=== PATIENT | female | born 1950 | race Caucasian/White ===

== ENCOUNTER 2018-07-21 15:57 | Outpatient (CLI) | payer MEDICARE | END 2018-07-21 15:58 | disposition home or self-care (01) | LOC: BICMAMMO 15:57 | PROVIDERS: ATTEND Family Medicine | DX: Z12.31 Encounter for screening mammogram for malignant neoplasm of breast (principal) | CPT/HCPCS: 77063; 77067 ==

== ENCOUNTER 2019-12-16 09:28 | Outpatient (CLI) | payer MEDICARE ==
--- NOTE | 2019-12-16 10:14 | ULT ---
BILATERAL CAROTID DUPLEX ULTRASOUND: HISTORY: Carotid stenosis. Right-sided endarterectomy 5 years ago TECHNIQUE: Grayscale, color-flow and spectral Doppler ultrasound imaging of the extracranial carotid artery syst ems was performed bilaterally. FINDINGS: There is plaque formation on the left The peak systolic velocity in the right ICA measures 73 cm/s with an end-diastolic velocity of 23 cm/ s and a systolic ratio of 0.87. The peak systolic velocity in the left ICA measures 84 cm/s with an end-diastolic velocity of 35 cm/s and a systolic ratio of 0.89. Flow in both vertebral arteries remains antegrade. IMPRESSION: No evidence of hemodynamically significant stenosis in either ICA
--- NOTE | 2019-12-16 10:16 | ULT ---
GALLBLADDER ULTRASOUND: HISTORY:Elevated transaminases, alcohol abuse FINDINGS: The liver demonstrates increased echotexture without focal mass or intrahepatic biliary ductal dilata tion. No gallstones, gallbladder wall thickening or pericholecystic fluid are seen. The right kidney and visualized portions of the pancreas are normal. The common duct [id number] in diameter. No free fluid is seen in the Biswas's pouch. IMPRESSION: Fatty liver
== END 2019-12-16 09:29 | disposition home or self-care (01) ==
LOC: BICULT 09:28
PROVIDERS: ATTEND Family Medicine
DX: I73.9 Peripheral vascular disease, unspecified (principal); R74.0 Nonspecific elevation of levels of transaminase and lactic acid dehydrogenase [LDH]; F10.10 Alcohol abuse, uncomplicated; K76.0 Fatty (change of) liver, not elsewhere classified
CPT/HCPCS: 76705; 93880

== ENCOUNTER 2022-03-26 20:12 | Inpatient (IN) | payer MEDICARE ==
[2022-03-26 22:40] VITALS: BMI 33.7
[2022-03-26] MEDS ORDERED: hydrALAZINE 20 MG/ML VIAL SLOW IVP PRN (23:27)
[2022-03-26] MEDS ORDERED: Dextrose 50% Abboject 50 ML SYRINGE SLOW IVP PRN (23:39)
[2022-03-26] MEDS ORDERED: Dextrose 5% in Water 1,000 ML IV PRN (23:39)
[2022-03-26] MEDS ORDERED: Electrolyte Replacement Protocol 1 EACH FS SCH (23:45)
[2022-03-26] MEDS ORDERED: Ondansetron ODT 4 MG TAB PO PRN (23:57)
[2022-03-26] MEDS ORDERED: Acetaminophen 650 MG Suppository PR PRN (23:57)
[2022-03-26] MEDS ORDERED: Acetaminophen 325 MG TAB PO PRN (23:57)
[2022-03-26] MEDS ORDERED: Ondansetron PF 4 MG/2 ML Vial IVP PRN (23:57)
[2022-03-27 00:14] LABS: #Eosinphils 0.2 thou/uL (0.0-0.7); #Lymphocytes 0.8 thou/uL (1.20-3.40); #Monocytes 0.6 thou/uL (0.11-0.59); #Neutrophils 6.1 thou/uL (1.40-6.50); %Basophils 0.1 % (0.0-1.0); %Eosinophils 2.6 % (0.0-10.0); %Lymphocytes 10.5 % (21.0-51.0); %Monocytes 7.5 % (0.0-10.0); %Neutrophils 79.4 % (42.0-75.0); Hemoglobin 7.4 g/dL (12.0-16.0); Mean Corpuscular HGB CONC 32.8 g/dL (32.0-36.0); Mean Corpuscular Hemoglobin 28.5 pg (27.0-31.0); Mean Platelet Volume 6.4 fL (7.4-10.4); Platelet Count 247 thou/uL (130-400); RBC Distribution Width 14.2 % (11.5-14.5); Red Blood Cell (RBC) Count 2.59 mill/uL (4.20-5.40); White Blood Cell (WBC) Count 7.7 thou/uL (4.8-10.8)
[2022-03-27] MEDS ORDERED: Furosemide 40 MG/4 ML VIAL SLOW IVP SCH (00:15)
[2022-03-27 00:36] LABS: ALT (SGPT) 14 U/L (8-55); AST (SGOT) 22 U/L (5-34); Albumin 3.1 g/dL (3.4-4.8); Alkaline Phosphatase 96 U/L (40-110); Anion Gap 16 mmol/L (10-20); BUN (Urea Nitrogen) 53 mg/dL (9.8-20.1); Bilirubin, Total 0.3 mg/dL (0.2-1.2); Calc. Creatinine Clearance 17 mL/min (70-130); Calcium 8.6 mg/dL (7.8-10.44); Carbon Dioxide 18 mmol/L (23-31); Chloride 110 mmol/L (98-107); Globulin 3.3 g/dL (2.4-3.5); Glucose 137 mg/dL (83-110); Potassium 4.3 mmol/L (3.5-5.1); Protein, Total 6.4 g/dL (5.8-8.1); Sodium 140 mmol/L (136-145)
[2022-03-27 00:41] LABS: Iron 50 ug/dL (50-170); Iron Binding Capacity, Total 331 mcg/dL (265-497)
[2022-03-27] MEDS ORDERED: hydrALAZINE 20 MG/ML VIAL SLOW IVP PRN (01:57)
[2022-03-27] MEDS ORDERED: Amlodipine 10 MG TAB PO SCH (02:15)
[2022-03-27] MEDS ORDERED: Magnesium 2 GM/50 ML(in water) 2 GM in Premix Bag 1 BAG IVPB SCH (05:30)
[2022-03-27 06:00] LABS: Ferritin 38.34 ng/mL (10-291)
[2022-03-27] MEDS ORDERED: Cyanocobalamin 1000 MCG/ML VIAL IM SCH (07:45)
[2022-03-27] MEDS ORDERED: Heparin 5,000 UNITS/ML VIAL SC SCH (09:00)
[2022-03-27 09:26] LABS: #Eosinphils 0.1 thou/uL (0.0-0.7); #Lymphocytes 0.8 thou/uL (1.20-3.40); #Monocytes 0.6 thou/uL (0.11-0.59); #Neutrophils 5.6 thou/uL (1.40-6.50); %Basophils 0.4 % (0.0-1.0); %Eosinophils 1.9 % (0.0-10.0); %Lymphocytes 11.4 % (21.0-51.0); %Monocytes 8.6 % (0.0-10.0); %Neutrophils 77.8 % (42.0-75.0); Hemoglobin 7.1 g/dL (12.0-16.0); Mean Corpuscular Hemoglobin 28.8 pg (27.0-31.0); Mean Corpuscular Volume 87.1 fL (78.0-98.0); Mean Platelet Volume 6.8 fL (7.4-10.4); Platelet Count 248 thou/uL (130-400); RBC Distribution Width 14.4 % (11.5-14.5); Red Blood Cell (RBC) Count 2.46 mill/uL (4.20-5.40); White Blood Cell (WBC) Count 7.2 thou/uL (4.8-10.8)
[2022-03-27 09:27] LABS: Reticulocyte Count 2.4 % (0.5-1.5)
[2022-03-27 09:43] LABS: ALT (SGPT) 13 U/L (8-55); AST (SGOT) 20 U/L (5-34); Albumin 3.1 g/dL (3.4-4.8); Alkaline Phosphatase 97 U/L (40-110); Anion Gap 17 mmol/L (10-20); BUN (Urea Nitrogen) 50 mg/dL (9.8-20.1); Bilirubin, Total 0.3 mg/dL (0.2-1.2); Calc. Creatinine Clearance 16 mL/min (70-130); Calcium 8.6 mg/dL (7.8-10.44); Carbon Dioxide 17 mmol/L (23-31); Chloride 109 mmol/L (98-107); Globulin 3.4 g/dL (2.4-3.5); Glucose 170 mg/dL (83-110); Potassium 4.3 mmol/L (3.5-5.1); Protein, Total 6.5 g/dL (5.8-8.1); Sodium 139 mmol/L (136-145)
[2022-03-27] MEDS: Furosemide 40 MG/4 ML VIAL SLOW IVP SCH (11:00)
[2022-03-27] MEDS: Nitroglycerin 2% Ointment 1 INCH/1 GM Packet TOP SCH ×2 (11:08→17:04)
[2022-03-27] MEDS: hydrALAZINE 20 MG/ML VIAL SLOW IVP PRN ×3 (11:12→20:39)
[2022-03-27 12:20] LABS: SARS-CoV-2 PCR by NAA Not Detected (NotDetected)
[2022-03-27 12:25] LABS: Creatinine, Urine 29.45 mg/dL (47-110)
[2022-03-27] MEDS: HumaLOG 300 UNITS/3 ML VIAL SC PRN ×2 (13:08→22:05)
[2022-03-27] MEDS: Mometasone 200 MCG/Formoterol 5 MCG 120 PUFF INHALER INH SCH (19:05)
[2022-03-27] MEDS: Cyanocobalamin (Vitamin B-12) 1,000 MCG TAB PO SCH (20:39)
[2022-03-28] MEDS: Nitroglycerin 2% Ointment 1 INCH/1 GM Packet TOP SCH ×2 (00:34→09:16)
[2022-03-28] MEDS: hydrALAZINE 20 MG/ML VIAL SLOW IVP PRN ×4 (00:34→23:59)
[2022-03-28 04:12] LABS: #Eosinphils 0.1 thou/uL (0.0-0.7); #Lymphocytes 0.8 thou/uL (1.20-3.40); #Monocytes 0.6 thou/uL (0.11-0.59); #Neutrophils 5.8 thou/uL (1.40-6.50); %Basophils 0.2 % (0.0-1.0); %Eosinophils 0.8 % (0.0-10.0); %Lymphocytes 11.4 % (21.0-51.0); %Monocytes 8.2 % (0.0-10.0); %Neutrophils 79.4 % (42.0-75.0); Hemoglobin 7.8 g/dL (12.0-16.0); Mean Corpuscular HGB CONC 32.9 g/dL (32.0-36.0); Mean Corpuscular Hemoglobin 28.7 pg (27.0-31.0); Mean Corpuscular Volume 87.3 fL (78.0-98.0); Mean Platelet Volume 6.6 fL (7.4-10.4); Platelet Count 216 thou/uL (130-400); RBC Distribution Width 13.8 % (11.5-14.5); Red Blood Cell (RBC) Count 2.72 mill/uL (4.20-5.40); White Blood Cell (WBC) Count 7.3 thou/uL (4.8-10.8)
[2022-03-28 04:39] LABS: ALT (SGPT) 9 U/L (8-55); AST (SGOT) 15 U/L (5-34); Albumin 2.9 g/dL (3.4-4.8); Alkaline Phosphatase 87 U/L (40-110); Anion Gap 15 mmol/L (10-20); BUN (Urea Nitrogen) 49 mg/dL (9.8-20.1); Bilirubin, Total 0.3 mg/dL (0.2-1.2); Calc. Creatinine Clearance 16 mL/min (70-130); Calcium 8.3 mg/dL (7.8-10.44); Carbon Dioxide 18 mmol/L (23-31); Chloride 110 mmol/L (98-107); Globulin 3.2 g/dL (2.4-3.5); Glucose 162 mg/dL (83-110); Potassium 4.3 mmol/L (3.5-5.1); Protein, Total 6.1 g/dL (5.8-8.1); Sodium 139 mmol/L (136-145)
[2022-03-28] MEDS: HumaLOG 300 UNITS/3 ML VIAL SC PRN ×3 (06:09→21:05)
[2022-03-28] MEDS: Mometasone 200 MCG/Formoterol 5 MCG 120 PUFF INHALER INH SCH ×2 (06:50→19:01)
[2022-03-28] MEDS ORDERED: Melatonin 3 MG TAB PO PRN (08:22)
[2022-03-28] MEDS ORDERED: Amlodipine 10 MG TAB PO SCH (09:00)
[2022-03-28] MEDS ORDERED: Ergocalciferol 1.25 MG(50,000 UNITS) CAP PO SCH (09:00)
[2022-03-28] MEDS: NIFEdipine XL 60 MG TAB PO SCH (09:11)
[2022-03-28] MEDS: hydrALAZINE 25 MG TAB PO SCH ×2 (09:12→20:23)
[2022-03-28] MEDS: Aspirin 81 mg Enteric Coated Tablet PO SCH (09:12)
[2022-03-28] MEDS: Loratadine 10 MG TAB PO SCH (09:13)
[2022-03-28] MEDS: Gabapentin 100 MG CAP PO SCH (09:13)
[2022-03-28] MEDS: Furosemide 40 MG/4 ML VIAL SLOW IVP SCH (09:14)
[2022-03-28] MEDS ORDERED: EPOETIN ALFA-EPBX (ESRD) 10,000 UNIT/ML VIAL SC SCH (13:00)
[2022-03-28] MEDS ORDERED: Polyethylene Glycol 3350 17 GM Packet PO PRN (16:27)
[2022-03-28] MEDS: Cyanocobalamin (Vitamin B-12) 1,000 MCG TAB PO SCH (20:24)
[2022-03-28] MEDS: Senokot S 8.6-50 MG TAB PO SCH (20:24)
[2022-03-28] MEDS ORDERED: NPH, Human Insulin Isophane 300 UNIT/3 ML VIAL SC SCH (21:00)
[2022-03-29 04:38] LABS: #Eosinphils 0.2 thou/uL (0.0-0.7); #Lymphocytes 0.8 thou/uL (1.20-3.40); #Monocytes 0.7 thou/uL (0.11-0.59); #Neutrophils 7.5 thou/uL (1.40-6.50); %Eosinophils 1.7 % (0.0-10.0); %Lymphocytes 8.4 % (21.0-51.0); %Monocytes 7.6 % (0.0-10.0); %Neutrophils 82.3 % (42.0-75.0); Hemoglobin 7.9 g/dL (12.0-16.0); Mean Corpuscular HGB CONC 32.6 g/dL (32.0-36.0); Mean Corpuscular Hemoglobin 28.9 pg (27.0-31.0); Mean Corpuscular Volume 88.5 fL (78.0-98.0); Mean Platelet Volume 6.8 fL (7.4-10.4); Platelet Count 221 thou/uL (130-400); RBC Distribution Width 13.7 % (11.5-14.5); Red Blood Cell (RBC) Count 2.74 mill/uL (4.20-5.40); White Blood Cell (WBC) Count 9.1 thou/uL (4.8-10.8)
[2022-03-29 04:57] LABS: Anion Gap 15 mmol/L (10-20); BUN (Urea Nitrogen) 52 mg/dL (9.8-20.1); BUN/Creatinine Ratio 12.01; Calc. Creatinine Clearance 15 mL/min (70-130); Calcium 8.3 mg/dL (7.8-10.44); Carbon Dioxide 18 mmol/L (23-31); Chloride 110 mmol/L (98-107); Glucose 185 mg/dL (83-110); Phosphorus 4.9 mg/dL (2.3-4.7); Potassium 4.1 mmol/L (3.5-5.1); Sodium 139 mmol/L (136-145)
[2022-03-29] MEDS: HumaLOG 300 UNITS/3 ML VIAL SC PRN ×3 (06:34→16:39)
[2022-03-29] MEDS: Levothyroxine Sodium 88 MCG TAB PO SCH (06:34)
[2022-03-29] MEDS: Mometasone 200 MCG/Formoterol 5 MCG 120 PUFF INHALER INH SCH ×2 (07:04→19:08)
[2022-03-29] MEDS: hydrALAZINE 20 MG/ML VIAL SLOW IVP PRN ×2 (07:25→16:39)
[2022-03-29] MEDS ORDERED: Labetalol HCl 100 MG/20 ML VIAL SLOW IVP PRN (08:20)
[2022-03-29] MEDS: hydrALAZINE 25 MG TAB PO SCH ×2 (09:00→20:22)
[2022-03-29] MEDS: Senokot S 8.6-50 MG TAB PO SCH ×2 (09:00→20:23)
[2022-03-29] MEDS: Aspirin 81 mg Enteric Coated Tablet PO SCH (09:00)
[2022-03-29] MEDS: Metoprolol Tartrate 25 MG TAB PO SCH ×2 (09:00→20:22)
[2022-03-29] MEDS: Furosemide 40 MG/4 ML VIAL SLOW IVP SCH (09:01)
[2022-03-29] MEDS: NIFEdipine XL 60 MG TAB PO SCH (09:01)
[2022-03-29] MEDS: NPH, Human Insulin Isophane 300 UNIT/3 ML VIAL SC SCH (09:01)
[2022-03-29] MEDS: Gabapentin 100 MG CAP PO SCH (09:01)
[2022-03-29 17:33] LABS: ANA Symphony (Qualitative) Negative (Negative); ANA Symphony (Quantitative) 0.3 Ratio (< 0.7 Negative); dsDNA IgG Antibody 5.2 IU/mL (<10 Negative)
[2022-03-29] MEDS: Cyanocobalamin (Vitamin B-12) 1,000 MCG TAB PO SCH (20:22)
[2022-03-30] MEDS: Levothyroxine Sodium 88 MCG TAB PO SCH (05:31)
[2022-03-30] MEDS: Mometasone 200 MCG/Formoterol 5 MCG 120 PUFF INHALER INH SCH ×2 (07:09→18:57)
[2022-03-30] MEDS: Loratadine 10 MG TAB PO SCH (09:59)
[2022-03-30] MEDS: hydrALAZINE 25 MG TAB PO SCH ×2 (09:59→20:57)
[2022-03-30] MEDS: NIFEdipine XL 60 MG TAB PO SCH ×2 (09:59→20:57)
[2022-03-30] MEDS: Aspirin 81 mg Enteric Coated Tablet PO SCH (10:00)
[2022-03-30] MEDS: Gabapentin 100 MG CAP PO SCH (10:00)
[2022-03-30] MEDS: Metoprolol Tartrate 25 MG TAB PO SCH ×2 (10:00→20:58)
[2022-03-30] MEDS: Senokot S 8.6-50 MG TAB PO SCH ×2 (10:01→20:58)
[2022-03-30] MEDS: NPH, Human Insulin Isophane 300 UNIT/3 ML VIAL SC SCH (10:02)
[2022-03-30] MEDS: HumaLOG 300 UNITS/3 ML VIAL SC PRN (17:19)
[2022-03-30] MEDS: Cyanocobalamin (Vitamin B-12) 1,000 MCG TAB PO SCH (20:58)
[2022-03-30] MEDS: Furosemide 40 MG/4 ML VIAL SLOW IVP SCH (21:02)
[2022-03-31 05:14] LABS: Anion Gap 13 mmol/L (10-20); BUN (Urea Nitrogen) 56 mg/dL (9.8-20.1); Calc. Creatinine Clearance 14 mL/min (70-130); Calcium 8.1 mg/dL (7.8-10.44); Carbon Dioxide 19 mmol/L (23-31); Chloride 110 mmol/L (98-107); Glucose 154 mg/dL (83-110); Magnesium 2.1 mg/dL (1.6-2.6); Potassium 4.2 mmol/L (3.5-5.1); Sodium 138 mmol/L (136-145)
[2022-03-31] MEDS: Levothyroxine Sodium 88 MCG TAB PO SCH (05:34)
[2022-03-31] MEDS: Mometasone 200 MCG/Formoterol 5 MCG 120 PUFF INHALER INH SCH ×2 (07:19→19:02)
[2022-03-31] MEDS: NIFEdipine XL 60 MG TAB PO SCH ×2 (09:13→19:52)
[2022-03-31] MEDS: hydrALAZINE 25 MG TAB PO SCH ×2 (09:13→19:51)
[2022-03-31] MEDS: Metoprolol Tartrate 25 MG TAB PO SCH ×2 (09:13→19:52)
[2022-03-31] MEDS: Gabapentin 100 MG CAP PO SCH (09:13)
[2022-03-31] MEDS: Aspirin 81 mg Enteric Coated Tablet PO SCH (09:14)
[2022-03-31] MEDS: Senokot S 8.6-50 MG TAB PO SCH ×2 (09:15→19:52)
[2022-03-31] MEDS: NPH, Human Insulin Isophane 300 UNIT/3 ML VIAL SC SCH (12:16)
[2022-03-31] MEDS: HumaLOG 300 UNITS/3 ML VIAL SC PRN (17:31)
[2022-03-31] MEDS: Cyanocobalamin (Vitamin B-12) 1,000 MCG TAB PO SCH (19:52)
[2022-03-31 19:55] VITALS: BP 174/79; TEMP 97.6
== END 2022-03-31 21:37 | disposition home health service (06) | DRG 291 ==
LOC: 2NO 22:34
PROVIDERS: ADMIT Internal Medicine; ATTEND Internal Medicine
PROC: 5A09357 Assistance with Respiratory Ventilation, Less than 24 Consecutive Hours, Continuous Positive Airway Pressure (ICD-10-PCS; principal; 2022-03-27)
DX: I13.2 Hypertensive heart and chronic kidney disease with heart failure and with stage 5 chronic kidney disease, or end stage renal disease (principal); Z20.822 Contact with and (suspected) exposure to COVID-19; Z66 Do not resuscitate; Z51.5 Encounter for palliative care; I50.33 Acute on chronic diastolic (congestive) heart failure; J96.21 Acute and chronic respiratory failure with hypoxia; N17.9 Acute kidney failure, unspecified; N18.5 Chronic kidney disease, stage 5; I16.1 Hypertensive emergency; J44.1 Chronic obstructive pulmonary disease with (acute) exacerbation; E87.2 Acidosis; I47.2 Ventricular tachycardia; E11.22 Type 2 diabetes mellitus with diabetic chronic kidney disease; E03.9 Hypothyroidism, unspecified; D63.1 Anemia in chronic kidney disease; K21.9 Gastro-esophageal reflux disease without esophagitis; E66.9 Obesity, unspecified; G47.33 Obstructive sleep apnea (adult) (pediatric); E88.09 Other disorders of plasma-protein metabolism, not elsewhere classified; I08.3 Combined rheumatic disorders of mitral, aortic and tricuspid valves; K52.9 Noninfective gastroenteritis and colitis, unspecified; E53.8 Deficiency of other specified B group vitamins; Z53.29 Procedure and treatment not carried out because of patient's decision for other reasons; Z90.49 Acquired absence of other specified parts of digestive tract; Z68.32 Body mass index [BMI] 32.0-32.9, adult; Z86.73 Personal history of transient ischemic attack (TIA), and cerebral infarction without residual deficits; Z90.710 Acquired absence of both cervix and uterus; Z79.899 Other long term (current) drug therapy; Z79.82 Long term (current) use of aspirin; Z79.84 Long term (current) use of oral hypoglycemic drugs; Z79.4 Long term (current) use of insulin; Z79.890 Hormone replacement therapy
CPT/HCPCS: 36415; 36416; 36430; 76770; 80048; 80053; 80069; 82306; 82570; 82607; 82728; 82746; 83516; 83540; 83550; 83735; 83970; 84156; 84484; 85025; 85046; 86038; 86225; 86340; 86850; 86900; 86901; 93306; 93798; 94640; J0360; J1815; J1940; J3420; J7620; P9016; Q5105; U0003; U0005

== ENCOUNTER 2022-04-02 04:58 | Inpatient (IN) | payer MEDICARE ==
[2022-04-02] MEDS ORDERED: Nitroglycerin 2% Ointment 1 INCH/1 GM Packet ONE (05:40)
[2022-04-02] MEDS ORDERED: Furosemide 40 MG/4 ML VIAL ONE (05:40)
[2022-04-02 06:03] LABS: #Eosinphils 0.1 thou/uL (0.0-0.7); #Lymphocytes 0.6 thou/uL (1.20-3.40); #Monocytes 0.4 thou/uL (0.11-0.59); #Neutrophils 8.7 thou/uL (1.40-6.50); %Basophils 0.4 % (0.0-1.0); %Eosinophils 0.8 % (0.0-10.0); %Lymphocytes 5.9 % (21.0-51.0); %Monocytes 3.7 % (0.0-10.0); %Neutrophils 89.3 % (42.0-75.0); Hemoglobin 7.7 g/dL (12.0-16.0); Mean Corpuscular HGB CONC 32.4 g/dL (32.0-36.0); Mean Corpuscular Hemoglobin 28.8 pg (27.0-31.0); Mean Corpuscular Volume 88.7 fL (78.0-98.0); Mean Platelet Volume 7.3 fL (7.4-10.4); Platelet Count 241 thou/uL (130-400); RBC Distribution Width 14.5 % (11.5-14.5); Red Blood Cell (RBC) Count 2.68 mill/uL (4.20-5.40); White Blood Cell (WBC) Count 9.8 thou/uL (4.8-10.8)
[2022-04-02 06:23] LABS: ALT (SGPT) 15 U/L (8-55); AST (SGOT) 22 U/L (5-34); Albumin 3.1 g/dL (3.4-4.8); Alkaline Phosphatase 97 U/L (40-110); Anion Gap 14 mmol/L (10-20); BUN (Urea Nitrogen) 63 mg/dL (9.8-20.1); Bilirubin, Total 0.3 mg/dL (0.2-1.2); Calc. Creatinine Clearance 0 mL/min (70-130); Calcium 8.1 mg/dL (7.8-10.44); Carbon Dioxide 18 mmol/L (23-31); Chloride 106 mmol/L (98-107); Globulin 3.4 g/dL (2.4-3.5); Glucose 204 mg/dL (83-110); Lipase 42 U/L (8-78); Potassium 4.5 mmol/L (3.5-5.1); Protein, Total 6.5 g/dL (5.8-8.1); Sodium 133 mmol/L (136-145)
[2022-04-02 06:45] LABS: CKMB 3.5 ng/mL (0-6.6)
[2022-04-02] MEDS ORDERED: Heparin 10,000 UNITS/ 10 ML VIAL ONE ×2 (08:41→12:13)
[2022-04-02 09:32] LABS: Troponin I 0.223 ng/mL (< 0.028)
[2022-04-02] MEDS ORDERED: ceFAZolin (BATCH) 2 GM in Premix Bag 1 BAG IVPB SCH (11:00)
[2022-04-02] MEDS ORDERED: Ondansetron PF 4 MG/2 ML Vial IVP PRN (11:11)
[2022-04-02] MEDS ORDERED: Dextrose 5% in Water 1,000 ML IV PRN (11:25)
[2022-04-02] MEDS ORDERED: Dextrose 50% Abboject 50 ML SYRINGE SLOW IVP PRN (11:25)
[2022-04-02] MEDS ORDERED: Lidocaine 1% w/Epinephrine 1:100K 20 ML VIAL ONE (12:13)
[2022-04-02] MEDS ORDERED: Bupivacaine PF 0.5% 30 ML VIAL ONE (12:13)
[2022-04-02] MEDS ORDERED: PROPOFOL 0 ML ONE (12:16)
[2022-04-02] MEDS ORDERED: Midazolam HCl 2 mg/2 ml Vial ONE (12:16)
[2022-04-02] MEDS ORDERED: fentaNYL Citrate/PF 100 MCG/2 ML SYRINGE ONE (12:16)
[2022-04-02] MEDS ORDERED: Ketamine 50 MG/ML (10ML VIAL) ONE (12:19)
[2022-04-02] MEDS ORDERED: ceFAZolin (BATCH) 2 GM/100 ML BAG ONE (12:21)
[2022-04-02 12:23] LABS: Troponin I 0.226 ng/mL (< 0.028)
[2022-04-02] MEDS ORDERED: Esmolol 100 MG/10 ML VIAL ONE ×2 (12:55→13:41)
[2022-04-02] MEDS ORDERED: Promethazine HCl 25 MG/ML VIAL IM PRN (13:21)
[2022-04-02] MEDS ORDERED: Ondansetron HCl/PF 4 MG/2 ML Vial IVP PRN (13:21)
[2022-04-02] MEDS ORDERED: Promethazine HCl 25 MG/ML VIAL IVPB PRN (13:21)
[2022-04-02] MEDS ORDERED: Labetalol HCl 100 MG/20 ML VIAL ONE (13:32)
[2022-04-02] MEDS ORDERED: Melatonin 3 MG TAB PO PRN (19:22)
[2022-04-02 19:26] LABS: ALT (SGPT) 12 U/L (8-55); AST (SGOT) 23 U/L (5-34); Albumin 2.8 g/dL (3.4-4.8); Alkaline Phosphatase 84 U/L (40-110); Anion Gap 15 mmol/L (10-20); BUN (Urea Nitrogen) 39 mg/dL (9.8-20.1); Bilirubin, Total 0.3 mg/dL (0.2-1.2); Calc. Creatinine Clearance 23 mL/min (70-130); Calcium 7.4 mg/dL (7.8-10.44); Carbon Dioxide 23 mmol/L (23-31); Chloride 105 mmol/L (98-107); Globulin 3.2 g/dL (2.4-3.5); Glucose 142 mg/dL (83-110); Sodium 139 mmol/L (136-145)
[2022-04-02] MEDS ORDERED: hydrALAZINE 20 MG/ML VIAL SLOW IVP PRN (21:17)
[2022-04-02] MEDS ORDERED: Labetalol HCl 100 MG/20 ML VIAL SLOW IVP PRN (21:18)
[2022-04-02] MEDS: Heparin 5,000 UNITS/ML VIAL SC SCH (21:34)
[2022-04-02] MEDS: Metoprolol Tartrate 50 MG TAB PO SCH (21:35)
[2022-04-02] MEDS: Melatonin 3 MG TAB PO PRN (21:38)
[2022-04-02] MEDS ORDERED: traMADol HCl 50 MG TAB PO SCH (21:45)
[2022-04-02 23:32] LABS: HBSAB Concentration Less than 8.00 mIU/mL; HBSAg Index 0.34 S/CO (0-0.99); Hep B Surf AB Non-Reactive (NonReactive); Hep B Surf Ag Non-Reactive S/CO (NonReactive)
[2022-04-02 23:42] LABS: Bacteria/HPF None Seen HPF (None Seen); Bilirubin Negative (Negative); Blood, Urine 1+ (Negative); Clarity Clear (Clear); Glucose, Urine (Dipstick) 200 mg/dL (Negative); Ketone, Urine 10 mg/dL (Negative); Leukocyte Negative Leu/uL (Negative); Nitrite Negative (Negative); Protein, Urine (Dipstick) 600 mg/dL (Neg-Trace); Renal Epithelial 0-3 HPF (None Seen); Squamous Epithelial None Seen HPF (0-3); Urobilinogen Normal mg/dL (Less than 2); pH, Urine 6.5 (5.0-9.0)
[2022-04-03] MEDS: hydrALAZINE 20 MG/ML VIAL SLOW IVP PRN ×2 (01:17→04:30)
[2022-04-03 04:43] LABS: #Eosinphils 0.1 thou/uL (0.0-0.7); #Lymphocytes 0.7 thou/uL (1.20-3.40); #Monocytes 0.5 thou/uL (0.11-0.59); #Neutrophils 5.5 thou/uL (1.40-6.50); %Lymphocytes 9.9 % (21.0-51.0); %Monocytes 6.8 % (0.0-10.0); %Neutrophils 81.2 % (42.0-75.0); Hemoglobin 7.1 g/dL (12.0-16.0); Mean Corpuscular HGB CONC 32.1 g/dL (32.0-36.0); Mean Corpuscular Hemoglobin 28.7 pg (27.0-31.0); Mean Corpuscular Volume 89.4 fL (78.0-98.0); Platelet Count 215 thou/uL (130-400); RBC Distribution Width 14.4 % (11.5-14.5); Red Blood Cell (RBC) Count 2.48 mill/uL (4.20-5.40); White Blood Cell (WBC) Count 6.8 thou/uL (4.8-10.8)
[2022-04-03] MEDS: Levothyroxine Sodium 88 MCG TAB PO SCH (04:53)
[2022-04-03 05:03] LABS: ALT (SGPT) 10 U/L (8-55); AST (SGOT) 18 U/L (5-34); Albumin 2.7 g/dL (3.4-4.8); Alkaline Phosphatase 85 U/L (40-110); Anion Gap 15 mmol/L (10-20); BUN (Urea Nitrogen) 43 mg/dL (9.8-20.1); Bilirubin, Total 0.3 mg/dL (0.2-1.2); Calc. Creatinine Clearance 20 mL/min (70-130); Calcium 7.9 mg/dL (7.8-10.44); Carbon Dioxide 23 mmol/L (23-31); Chloride 106 mmol/L (98-107); Glucose 127 mg/dL (83-110); Potassium 3.9 mmol/L (3.5-5.1); Protein, Total 5.7 g/dL (5.8-8.1); Sodium 140 mmol/L (136-145)
[2022-04-03] MEDS: Ezetimibe 10 MG TAB PO SCH (08:25)
[2022-04-03] MEDS: Atorvastatin Calcium 40 MG TAB PO SCH (08:25)
[2022-04-03] MEDS: Cholecalciferol 1,000 UNITS (25 MCG) TAB PO SCH (08:25)
[2022-04-03] MEDS: Aspirin 81 mg Enteric Coated Tablet PO SCH (08:25)
[2022-04-03] MEDS: Gabapentin 100 MG CAP PO SCH (08:25)
[2022-04-03] MEDS: Loratadine 10 MG TAB PO SCH (08:26)
[2022-04-03] MEDS: Furosemide 20 MG TAB PO SCH (08:26)
[2022-04-03] MEDS: Heparin 5,000 UNITS/ML VIAL SC SCH ×3 (08:26→20:52)
[2022-04-03] MEDS: Famotidine/PF 20 mg/2ml Vial SLOW IVP SCH (08:26)
[2022-04-03] MEDS: Metoprolol Tartrate 50 MG TAB PO SCH ×2 (08:27→20:53)
[2022-04-03] MEDS ORDERED: Heparin 10,000 UNITS/ 10 ML VIAL ONE (08:38)
[2022-04-03] MEDS ORDERED: Dextrose 5% in Water 1,000 ML IV PRN (11:54)
[2022-04-03] MEDS ORDERED: Dextrose 50% Abboject 50 ML SYRINGE SLOW IVP PRN (11:54)
[2022-04-03] MEDS: Labetalol HCl 100 MG/20 ML VIAL SLOW IVP PRN ×2 (12:56→17:05)
[2022-04-03] MEDS ORDERED: Tuberculin PPD 0.1 ML VIAL I-DERMAL SCH (16:30)
[2022-04-03] MEDS: HumaLOG 300 UNITS/3 ML VIAL SC PRN (17:04)
[2022-04-03] MEDS ORDERED: NIFEdipine XL 60 MG TAB PO SCH (20:00)
[2022-04-03] MEDS: hydrALAZINE 25 MG TAB PO SCH (20:52)
[2022-04-03] MEDS: NIFEdipine XL 60 MG TAB PO SCH (20:52)
[2022-04-03 22:32] LABS: Hep B Core Total Ab Non-Reactive (NonReactive); Hep B Core Total Index 0.07 S/CO (0-0.79)
[2022-04-04 04:19] LABS: Hemoglobin 7.2 g/dL (12.0-16.0)
[2022-04-04 04:43] LABS: Anion Gap 12 mmol/L (10-20); BUN (Urea Nitrogen) 29 mg/dL (9.8-20.1); Calc. Creatinine Clearance 25 mL/min (70-130); Calcium 7.7 mg/dL (7.8-10.44); Carbon Dioxide 28 mmol/L (23-31); Chloride 102 mmol/L (98-107); Glucose 171 mg/dL (83-110); Potassium 3.3 mmol/L (3.5-5.1); Sodium 139 mmol/L (136-145)
[2022-04-04] MEDS: Levothyroxine Sodium 88 MCG TAB PO SCH (06:12)
[2022-04-04] MEDS: Atorvastatin Calcium 40 MG TAB PO SCH (09:24)
[2022-04-04] MEDS: Cholecalciferol 1,000 UNITS (25 MCG) TAB PO SCH (09:25)
[2022-04-04] MEDS: Metoprolol Tartrate 50 MG TAB PO SCH ×2 (09:25→20:35)
[2022-04-04] MEDS: NIFEdipine XL 60 MG TAB PO SCH ×2 (09:25→20:35)
[2022-04-04] MEDS: Furosemide 20 MG TAB PO SCH (09:25)
[2022-04-04] MEDS: Ezetimibe 10 MG TAB PO SCH (09:25)
[2022-04-04] MEDS: Gabapentin 100 MG CAP PO SCH (09:25)
[2022-04-04] MEDS: hydrALAZINE 25 MG TAB PO SCH ×2 (09:25→20:35)
[2022-04-04] MEDS: Aspirin 81 mg Enteric Coated Tablet PO SCH (09:25)
[2022-04-04] MEDS: Heparin 5,000 UNITS/ML VIAL SC SCH ×3 (09:26→21:51)
[2022-04-04] MEDS: NPH, Human Insulin Isophane 300 UNIT/3 ML VIAL SC SCH (09:26)
[2022-04-04] MEDS: Famotidine/PF 20 mg/2ml Vial SLOW IVP SCH (09:26)
[2022-04-04] MEDS: hydrALAZINE 20 MG/ML VIAL SLOW IVP PRN ×2 (11:21→15:49)
[2022-04-04] MEDS: HumaLOG 300 UNITS/3 ML VIAL SC PRN ×2 (11:21→18:23)
[2022-04-04] MEDS ORDERED: Potassium Chloride 20 MEQ TAB PO SCH (12:15)
[2022-04-05] MEDS: hydrALAZINE 20 MG/ML VIAL SLOW IVP PRN ×3 (00:29→17:32)
[2022-04-05] MEDS: Labetalol HCl 100 MG/20 ML VIAL SLOW IVP PRN ×2 (04:34→19:14)
[2022-04-05 04:56] LABS: Hemoglobin 7.6 g/dL (12.0-16.0)
[2022-04-05 05:15] LABS: Anion Gap 15 mmol/L (10-20); BUN (Urea Nitrogen) 34 mg/dL (9.8-20.1); Calc. Creatinine Clearance 19 mL/min (70-130); Calcium 7.8 mg/dL (7.8-10.44); Carbon Dioxide 24 mmol/L (23-31); Chloride 104 mmol/L (98-107); Glucose 149 mg/dL (83-110); Potassium 3.5 mmol/L (3.5-5.1); Sodium 139 mmol/L (136-145)
[2022-04-05] MEDS: Levothyroxine Sodium 88 MCG TAB PO SCH (05:49)
[2022-04-05] MEDS: HumaLOG 300 UNITS/3 ML VIAL SC PRN (06:12)
[2022-04-05] MEDS ORDERED: Heparin 10,000 UNITS/ 10 ML VIAL ONE (08:41)
[2022-04-05] MEDS ORDERED: READ PPD TEST SITE PO SCH (09:00)
[2022-04-05] MEDS: Atorvastatin Calcium 40 MG TAB PO SCH (09:01)
[2022-04-05] MEDS: Cholecalciferol 1,000 UNITS (25 MCG) TAB PO SCH (09:01)
[2022-04-05] MEDS: Aspirin 81 mg Enteric Coated Tablet PO SCH (09:01)
[2022-04-05] MEDS: Ezetimibe 10 MG TAB PO SCH (09:03)
[2022-04-05] MEDS: Furosemide 20 MG TAB PO SCH (09:03)
[2022-04-05] MEDS: Gabapentin 100 MG CAP PO SCH (09:03)
[2022-04-05] MEDS: Famotidine/PF 20 mg/2ml Vial SLOW IVP SCH (09:03)
[2022-04-05] MEDS: Heparin 5,000 UNITS/ML VIAL SC SCH ×3 (09:04→21:44)
[2022-04-05] MEDS: hydrALAZINE 25 MG TAB PO SCH ×2 (09:04→20:20)
[2022-04-05] MEDS: Loratadine 10 MG TAB PO SCH (09:05)
[2022-04-05] MEDS: Metoprolol Tartrate 50 MG TAB PO SCH ×2 (09:05→20:20)
[2022-04-05] MEDS: NPH, Human Insulin Isophane 300 UNIT/3 ML VIAL SC SCH (09:05)
[2022-04-05] MEDS: NIFEdipine XL 60 MG TAB PO SCH ×2 (09:05→20:19)
[2022-04-06] MEDS: Levothyroxine Sodium 88 MCG TAB PO SCH (06:45)
[2022-04-06] MEDS: Atorvastatin Calcium 40 MG TAB PO SCH (09:11)
[2022-04-06] MEDS: Furosemide 20 MG TAB PO SCH (09:12)
[2022-04-06] MEDS: hydrALAZINE 25 MG TAB PO SCH ×2 (09:12→20:33)
[2022-04-06] MEDS: Gabapentin 100 MG CAP PO SCH (09:12)
[2022-04-06] MEDS: Cholecalciferol 1,000 UNITS (25 MCG) TAB PO SCH (09:12)
[2022-04-06] MEDS: Ezetimibe 10 MG TAB PO SCH (09:13)
[2022-04-06] MEDS: Heparin 5,000 UNITS/ML VIAL SC SCH ×3 (09:13→20:36)
[2022-04-06] MEDS: Aspirin 81 mg Enteric Coated Tablet PO SCH (09:13)
[2022-04-06] MEDS: NIFEdipine XL 60 MG TAB PO SCH ×2 (09:13→20:35)
[2022-04-06] MEDS: Famotidine/PF 20 mg/2ml Vial SLOW IVP SCH (09:13)
[2022-04-06] MEDS: Metoprolol Tartrate 50 MG TAB PO SCH ×2 (09:16→20:35)
[2022-04-06] MEDS: NPH, Human Insulin Isophane 300 UNIT/3 ML VIAL SC SCH (09:19)
[2022-04-06] MEDS: HumaLOG 300 UNITS/3 ML VIAL SC PRN (11:55)
[2022-04-07] MEDS: hydrALAZINE 20 MG/ML VIAL SLOW IVP PRN (00:48)
[2022-04-07] MEDS: Levothyroxine Sodium 88 MCG TAB PO SCH (06:45)
[2022-04-07] MEDS: Aspirin 81 mg Enteric Coated Tablet PO SCH (08:52)
[2022-04-07] MEDS: Atorvastatin Calcium 40 MG TAB PO SCH (08:52)
[2022-04-07] MEDS: Ezetimibe 10 MG TAB PO SCH (08:53)
[2022-04-07] MEDS: Furosemide 20 MG TAB PO SCH (08:53)
[2022-04-07] MEDS: Famotidine/PF 20 mg/2ml Vial SLOW IVP SCH (08:53)
[2022-04-07] MEDS: Cholecalciferol 1,000 UNITS (25 MCG) TAB PO SCH (08:53)
[2022-04-07] MEDS: hydrALAZINE 25 MG TAB PO SCH ×2 (08:54→21:38)
[2022-04-07] MEDS: Gabapentin 100 MG CAP PO SCH (08:54)
[2022-04-07] MEDS: NPH, Human Insulin Isophane 300 UNIT/3 ML VIAL SC SCH (08:55)
[2022-04-07] MEDS: NIFEdipine XL 60 MG TAB PO SCH ×2 (08:55→21:38)
[2022-04-07] MEDS: Metoprolol Tartrate 50 MG TAB PO SCH ×2 (08:55→21:39)
[2022-04-07] MEDS: Loratadine 10 MG TAB PO SCH (08:55)
[2022-04-07] MEDS: Heparin 5,000 UNITS/ML VIAL SC SCH ×3 (09:18→21:38)
[2022-04-07] MEDS ORDERED: Bupivacaine PF 0.5% 30 ML VIAL ONE (10:29)
[2022-04-07] MEDS ORDERED: Lidocaine 1% w/Epinephrine 1:100K 20 ML VIAL ONE (10:29)
[2022-04-07] MEDS ORDERED: Heparin 5,000 UNITS/ML VIAL ONE (10:29)
[2022-04-07] MEDS ORDERED: Protamine Sulfate 50 MG/5 ML VIAL ONE (10:33)
[2022-04-07] MEDS ORDERED: Ioversol 68 % 50 ML VIAL ONE (10:33)
[2022-04-07] MEDS ORDERED: fentaNYL Citrate/PF 100 MCG/2 ML SYRINGE ONE (10:35)
[2022-04-07] MEDS ORDERED: Ketamine 50 MG/ML (10ML VIAL) ONE (10:35)
[2022-04-07] MEDS ORDERED: Propofol 1,000 MG/100 ML VIAL IV ONE (10:35)
[2022-04-07] MEDS ORDERED: Lidocaine 1% (PF) 30 ML VIAL ONE (10:36)
[2022-04-07] MEDS ORDERED: ceFAZolin (BATCH) 2 GM/100 ML BAG ONE (10:46)
[2022-04-07] MEDS ORDERED: Bupivacaine HCl 0.5%/Epinephrine 1:200,000/PF 30 ml Vial ONE (11:06)
[2022-04-07] MEDS ORDERED: PROPOFOL 200 MG/20 ML VIAL ONE (11:06)
[2022-04-07] MEDS ORDERED: traMADol HCl 50 MG TAB PO PRN (12:34)
[2022-04-07] MEDS: Acetaminophen 500 MG TAB PO PRN (21:39)
[2022-04-07] MEDS: Melatonin 3 MG TAB PO PRN (23:21)
[2022-04-08 04:03] LABS: #Eosinphils 0.3 thou/uL (0.0-0.7); #Monocytes 0.7 thou/uL (0.11-0.59); #Neutrophils 5.4 thou/uL (1.40-6.50); %Basophils 0.2 % (0.0-1.0); %Eosinophils 4.7 % (0.0-10.0); %Lymphocytes 12.7 % (21.0-51.0); %Monocytes 9.6 % (0.0-10.0); %Neutrophils 72.8 % (42.0-75.0); Hemoglobin 7.3 g/dL (12.0-16.0); Mean Corpuscular HGB CONC 31.5 g/dL (32.0-36.0); Mean Corpuscular Hemoglobin 28.3 pg (27.0-31.0); Mean Corpuscular Volume 89.9 fL (78.0-98.0); Mean Platelet Volume 7.5 fL (7.4-10.4); Platelet Count 215 thou/uL (130-400); RBC Distribution Width 13.9 % (11.5-14.5); Red Blood Cell (RBC) Count 2.56 mill/uL (4.20-5.40); White Blood Cell (WBC) Count 7.5 thou/uL (4.8-10.8)
[2022-04-08 04:18] LABS: Anion Gap 14 mmol/L (10-20); BUN (Urea Nitrogen) 38 mg/dL (9.8-20.1); Calc. Creatinine Clearance 14 mL/min (70-130); Calcium 7.7 mg/dL (7.8-10.44); Carbon Dioxide 26 mmol/L (23-31); Chloride 103 mmol/L (98-107); Glucose 167 mg/dL (83-110); Potassium 3.7 mmol/L (3.5-5.1); Sodium 139 mmol/L (136-145)
[2022-04-08] MEDS: Levothyroxine Sodium 88 MCG TAB PO SCH (05:28)
[2022-04-08] MEDS: hydrALAZINE 25 MG TAB PO SCH ×2 (08:59→20:44)
[2022-04-08] MEDS: Aspirin 81 mg Enteric Coated Tablet PO SCH (08:59)
[2022-04-08] MEDS: Ezetimibe 10 MG TAB PO SCH (09:00)
[2022-04-08] MEDS: Furosemide 20 MG TAB PO SCH (09:00)
[2022-04-08] MEDS: NIFEdipine XL 60 MG TAB PO SCH ×2 (09:00→20:44)
[2022-04-08] MEDS: Atorvastatin Calcium 40 MG TAB PO SCH (09:00)
[2022-04-08] MEDS: Metoprolol Tartrate 50 MG TAB PO SCH ×2 (09:00→20:44)
[2022-04-08] MEDS: Gabapentin 100 MG CAP PO SCH (09:00)
[2022-04-08] MEDS: Heparin 5,000 UNITS/ML VIAL SC SCH ×3 (09:01→20:45)
[2022-04-08] MEDS: Famotidine/PF 20 mg/2ml Vial SLOW IVP SCH (09:01)
[2022-04-08] MEDS: NPH, Human Insulin Isophane 300 UNIT/3 ML VIAL SC SCH (09:01)
[2022-04-08] MEDS: Cholecalciferol 1,000 UNITS (25 MCG) TAB PO SCH (09:01)
[2022-04-08] MEDS ORDERED: Heparin 10,000 UNITS/ 10 ML VIAL ONE (10:17)
[2022-04-08] MEDS: HumaLOG 300 UNITS/3 ML VIAL SC PRN (17:09)
[2022-04-08] MEDS: Acetaminophen 500 MG TAB PO PRN (20:51)
[2022-04-09] MEDS: hydrALAZINE 20 MG/ML VIAL SLOW IVP PRN (04:18)
[2022-04-09] MEDS: Levothyroxine Sodium 88 MCG TAB PO SCH (05:32)
[2022-04-09] MEDS: HumaLOG 300 UNITS/3 ML VIAL SC PRN (05:35)
[2022-04-09] MEDS: Aspirin 81 mg Enteric Coated Tablet PO SCH (08:20)
[2022-04-09] MEDS: Atorvastatin Calcium 40 MG TAB PO SCH (08:21)
[2022-04-09] MEDS: Cholecalciferol 1,000 UNITS (25 MCG) TAB PO SCH (08:22)
[2022-04-09] MEDS: Ezetimibe 10 MG TAB PO SCH (08:22)
[2022-04-09] MEDS: Gabapentin 100 MG CAP PO SCH (08:23)
[2022-04-09] MEDS: Loratadine 10 MG TAB PO SCH (08:23)
[2022-04-09] MEDS: Famotidine 20 MG TAB PO SCH (08:23)
[2022-04-09] MEDS: Furosemide 20 MG TAB PO SCH (08:23)
[2022-04-09] MEDS: Heparin 5,000 UNITS/ML VIAL SC SCH ×3 (08:23→21:16)
[2022-04-09] MEDS: Metoprolol Tartrate 50 MG TAB PO SCH ×2 (08:24→21:16)
[2022-04-09] MEDS: NIFEdipine XL 60 MG TAB PO SCH ×2 (08:24→21:16)
[2022-04-09] MEDS: NPH, Human Insulin Isophane 300 UNIT/3 ML VIAL SC SCH (08:27)
[2022-04-09] MEDS: hydrALAZINE 25 MG TAB PO SCH ×3 (08:31→21:16)
[2022-04-09] MEDS: Ergocalciferol 1.25 MG(50,000 UNITS) CAP PO SCH (09:05)
[2022-04-09] MEDS: Acetaminophen 500 MG TAB PO PRN (21:20)
[2022-04-10] MEDS: Levothyroxine Sodium 88 MCG TAB PO SCH (06:00)
[2022-04-10] MEDS: Atorvastatin Calcium 40 MG TAB PO SCH (08:38)
[2022-04-10] MEDS: Metoprolol Tartrate 50 MG TAB PO SCH ×2 (08:38→21:15)
[2022-04-10] MEDS: NIFEdipine XL 60 MG TAB PO SCH ×2 (08:38→21:15)
[2022-04-10] MEDS: Aspirin 81 mg Enteric Coated Tablet PO SCH (08:38)
[2022-04-10] MEDS: hydrALAZINE 25 MG TAB PO SCH ×3 (08:38→21:16)
[2022-04-10] MEDS: Gabapentin 100 MG CAP PO SCH (08:39)
[2022-04-10] MEDS: Heparin 5,000 UNITS/ML VIAL SC SCH ×3 (08:39→21:15)
[2022-04-10] MEDS: Cholecalciferol 1,000 UNITS (25 MCG) TAB PO SCH (08:39)
[2022-04-10] MEDS: NPH, Human Insulin Isophane 300 UNIT/3 ML VIAL SC SCH (08:39)
[2022-04-10] MEDS: Famotidine 20 MG TAB PO SCH (08:39)
[2022-04-10] MEDS: Ezetimibe 10 MG TAB PO SCH (08:39)
[2022-04-10] MEDS ORDERED: Heparin 10,000 UNITS/ 10 ML VIAL ONE (09:08)
[2022-04-10 12:30] VITALS: BMI 29.7
[2022-04-10] MEDS: Epoetin (ESRD) 10,000 UNITS/ML VIAL IVP SCH (13:21)
[2022-04-11] MEDS: Melatonin 3 MG TAB PO PRN (01:06)
[2022-04-11] MEDS: Acetaminophen 500 MG TAB PO PRN ×2 (01:06→11:36)
[2022-04-11] MEDS: Levothyroxine Sodium 88 MCG TAB PO SCH (05:33)
[2022-04-11] MEDS: Atorvastatin Calcium 40 MG TAB PO SCH (09:45)
[2022-04-11] MEDS: Ezetimibe 10 MG TAB PO SCH (09:45)
[2022-04-11] MEDS: Aspirin 81 mg Enteric Coated Tablet PO SCH (09:45)
[2022-04-11] MEDS: Cholecalciferol 1,000 UNITS (25 MCG) TAB PO SCH (09:45)
[2022-04-11] MEDS: Famotidine 20 MG TAB PO SCH (09:46)
[2022-04-11] MEDS: Gabapentin 100 MG CAP PO SCH (09:46)
[2022-04-11] MEDS: Heparin 5,000 UNITS/ML VIAL SC SCH ×3 (09:46→21:00)
[2022-04-11] MEDS: hydrALAZINE 25 MG TAB PO SCH ×3 (09:47→21:01)
[2022-04-11] MEDS: Metoprolol Tartrate 50 MG TAB PO SCH ×2 (09:48→21:01)
[2022-04-11] MEDS: NIFEdipine XL 60 MG TAB PO SCH ×2 (09:48→21:01)
[2022-04-11] MEDS: NPH, Human Insulin Isophane 300 UNIT/3 ML VIAL SC SCH (09:48)
[2022-04-11] MEDS: Loratadine 10 MG TAB PO SCH (09:48)
[2022-04-11] MEDS: HumaLOG 300 UNITS/3 ML VIAL SC PRN ×2 (11:31→16:58)
[2022-04-11] MEDS ORDERED: hydrOXYzine 25 MG TAB PO SCH (22:55)
[2022-04-12] MEDS: Levothyroxine Sodium 88 MCG TAB PO SCH (05:37)
[2022-04-12 06:09] LABS: Anion Gap 16 mmol/L (10-20); BUN (Urea Nitrogen) 24 mg/dL (9.8-20.1); Calc. Creatinine Clearance 15 mL/min (70-130); Calcium 7.4 mg/dL (7.8-10.44); Carbon Dioxide 26 mmol/L (23-31); Chloride 99 mmol/L (98-107); Glucose 142 mg/dL (83-110); Sodium 138 mmol/L (136-145)
[2022-04-12] MEDS ORDERED: Potassium Chloride 20 MEQ TAB PO SCH (08:15)
[2022-04-12] MEDS ORDERED: Heparin 10,000 UNITS/ 10 ML VIAL ONE (08:46)
[2022-04-12] MEDS: Heparin 5,000 UNITS/ML VIAL SC SCH ×3 (09:00→20:27)
[2022-04-12] MEDS: Atorvastatin Calcium 40 MG TAB PO SCH (09:31)
[2022-04-12] MEDS: hydrALAZINE 25 MG TAB PO SCH ×3 (09:31→20:30)
[2022-04-12] MEDS: Ezetimibe 10 MG TAB PO SCH (09:32)
[2022-04-12] MEDS: Metoprolol Tartrate 50 MG TAB PO SCH ×2 (09:32→20:31)
[2022-04-12] MEDS: NIFEdipine XL 60 MG TAB PO SCH ×2 (09:32→20:31)
[2022-04-12] MEDS: Cholecalciferol 1,000 UNITS (25 MCG) TAB PO SCH (09:32)
[2022-04-12] MEDS: Aspirin 81 mg Enteric Coated Tablet PO SCH (09:34)
[2022-04-12] MEDS: Famotidine 20 MG TAB PO SCH (09:34)
[2022-04-12] MEDS: Gabapentin 100 MG CAP PO SCH (14:10)
[2022-04-12] MEDS: NPH, Human Insulin Isophane 300 UNIT/3 ML VIAL SC SCH (14:13)
[2022-04-12] MEDS: Epoetin (ESRD) 10,000 UNITS/ML VIAL IVP SCH (14:22)
[2022-04-12] MEDS: HumaLOG 300 UNITS/3 ML VIAL SC PRN ×2 (16:46→22:38)
[2022-04-13] MEDS: HumaLOG 300 UNITS/3 ML VIAL SC PRN ×3 (05:43→16:42)
[2022-04-13] MEDS: Levothyroxine Sodium 88 MCG TAB PO SCH (05:43)
[2022-04-13 05:52] LABS: Anion Gap 15 mmol/L (10-20); BUN (Urea Nitrogen) 20 mg/dL (9.8-20.1); Calc. Creatinine Clearance 15 mL/min (70-130); Calcium 7.7 mg/dL (7.8-10.44); Carbon Dioxide 26 mmol/L (23-31); Chloride 102 mmol/L (98-107); Glucose 163 mg/dL (83-110); Potassium 3.8 mmol/L (3.5-5.1); Sodium 139 mmol/L (136-145)
[2022-04-13] MEDS: Aspirin 81 mg Enteric Coated Tablet PO SCH (09:25)
[2022-04-13] MEDS: Cholecalciferol 1,000 UNITS (25 MCG) TAB PO SCH (09:26)
[2022-04-13] MEDS: Atorvastatin Calcium 40 MG TAB PO SCH (09:26)
[2022-04-13] MEDS: Famotidine 20 MG TAB PO SCH (09:27)
[2022-04-13] MEDS: Ezetimibe 10 MG TAB PO SCH (09:27)
[2022-04-13] MEDS: Gabapentin 100 MG CAP PO SCH (09:28)
[2022-04-13] MEDS: hydrALAZINE 25 MG TAB PO SCH ×3 (09:29→20:14)
[2022-04-13] MEDS: Metoprolol Tartrate 50 MG TAB PO SCH ×2 (09:30→20:14)
[2022-04-13] MEDS: Loratadine 10 MG TAB PO SCH (09:30)
[2022-04-13] MEDS: NIFEdipine XL 60 MG TAB PO SCH ×2 (09:32→20:14)
[2022-04-13] MEDS: Heparin 5,000 UNITS/ML VIAL SC SCH ×3 (09:44→20:14)
[2022-04-13] MEDS: NPH, Human Insulin Isophane 300 UNIT/3 ML VIAL SC SCH (09:48)
[2022-04-14] MEDS: Levothyroxine Sodium 88 MCG TAB PO SCH (06:00)
[2022-04-14] MEDS: HumaLOG 300 UNITS/3 ML VIAL SC PRN ×3 (06:00→15:11)
[2022-04-14 06:46] LABS: Anion Gap 15 mmol/L (10-20); BUN (Urea Nitrogen) 30 mg/dL (9.8-20.1); Calc. Creatinine Clearance 12 mL/min (70-130); Carbon Dioxide 24 mmol/L (23-31); Chloride 101 mmol/L (98-107); Glucose 192 mg/dL (83-110); Potassium 3.7 mmol/L (3.5-5.1); Sodium 136 mmol/L (136-145)
[2022-04-14] MEDS: Aspirin 81 mg Enteric Coated Tablet PO SCH (08:31)
[2022-04-14] MEDS: Cholecalciferol 1,000 UNITS (25 MCG) TAB PO SCH (08:32)
[2022-04-14] MEDS: Atorvastatin Calcium 40 MG TAB PO SCH (08:32)
[2022-04-14] MEDS: Gabapentin 100 MG CAP PO SCH (08:34)
[2022-04-14] MEDS: Famotidine 20 MG TAB PO SCH (08:34)
[2022-04-14] MEDS: Ezetimibe 10 MG TAB PO SCH (08:34)
[2022-04-14] MEDS: hydrALAZINE 25 MG TAB PO SCH ×3 (08:36→21:07)
[2022-04-14] MEDS: Metoprolol Tartrate 50 MG TAB PO SCH ×2 (08:39→21:07)
[2022-04-14] MEDS: NIFEdipine XL 60 MG TAB PO SCH ×2 (08:41→21:07)
[2022-04-14] MEDS: NPH, Human Insulin Isophane 300 UNIT/3 ML VIAL SC SCH (08:42)
[2022-04-14] MEDS: Heparin 5,000 UNITS/ML VIAL SC SCH ×3 (10:11→21:07)
[2022-04-14] MEDS: Acetaminophen 500 MG TAB PO PRN (21:07)
[2022-04-15] MEDS: Levothyroxine Sodium 88 MCG TAB PO SCH (06:08)
[2022-04-15] MEDS: HumaLOG 300 UNITS/3 ML VIAL SC PRN ×3 (06:08→21:21)
[2022-04-15] MEDS ORDERED: Heparin 10,000 UNITS/ 10 ML VIAL ONE (08:37)
[2022-04-15] MEDS: Atorvastatin Calcium 40 MG TAB PO SCH (08:43)
[2022-04-15] MEDS: Aspirin 81 mg Enteric Coated Tablet PO SCH (08:43)
[2022-04-15] MEDS: Cholecalciferol 1,000 UNITS (25 MCG) TAB PO SCH (08:43)
[2022-04-15] MEDS: Famotidine 20 MG TAB PO SCH (08:43)
[2022-04-15] MEDS: Ezetimibe 10 MG TAB PO SCH (08:43)
[2022-04-15] MEDS: Gabapentin 100 MG CAP PO SCH (08:43)
[2022-04-15] MEDS: Loratadine 10 MG TAB PO SCH (08:44)
[2022-04-15] MEDS: Heparin 5,000 UNITS/ML VIAL SC SCH ×3 (08:44→21:22)
[2022-04-15] MEDS: Metoprolol Tartrate 50 MG TAB PO SCH ×2 (08:45→21:22)
[2022-04-15] MEDS: NPH, Human Insulin Isophane 300 UNIT/3 ML VIAL SC SCH (08:45)
[2022-04-15] MEDS: NIFEdipine XL 60 MG TAB PO SCH ×2 (08:45→21:22)
[2022-04-15] MEDS: hydrALAZINE 25 MG TAB PO SCH ×3 (08:45→21:22)
[2022-04-15] MEDS: Acetaminophen 500 MG TAB PO PRN (09:10)
[2022-04-15] MEDS ORDERED: Bisacodyl 5 MG TAB PO PRN (13:44)
[2022-04-15] MEDS ORDERED: Bisacodyl 5 MG TAB PO SCH (13:45)
[2022-04-15] MEDS ORDERED: Fluconazole 100 MG TAB PO SCH (14:00)
[2022-04-15] MEDS: Epoetin (ESRD) 10,000 UNITS/ML VIAL IVP SCH (14:21)
[2022-04-16] MEDS: Levothyroxine Sodium 88 MCG TAB PO SCH (06:02)
[2022-04-16] MEDS: HumaLOG 300 UNITS/3 ML VIAL SC PRN ×4 (06:42→22:26)
[2022-04-16] MEDS: hydrALAZINE 25 MG TAB PO SCH ×3 (08:49→22:27)
[2022-04-16] MEDS: Atorvastatin Calcium 40 MG TAB PO SCH (08:49)
[2022-04-16] MEDS: Gabapentin 100 MG CAP PO SCH (08:50)
[2022-04-16] MEDS: Metoprolol Tartrate 50 MG TAB PO SCH ×2 (08:50→22:27)
[2022-04-16] MEDS: Ezetimibe 10 MG TAB PO SCH (08:51)
[2022-04-16] MEDS: Famotidine 20 MG TAB PO SCH (08:51)
[2022-04-16] MEDS: NIFEdipine XL 60 MG TAB PO SCH ×2 (08:51→22:27)
[2022-04-16] MEDS: Aspirin 81 mg Enteric Coated Tablet PO SCH (08:51)
[2022-04-16] MEDS: Cholecalciferol 1,000 UNITS (25 MCG) TAB PO SCH (08:51)
[2022-04-16] MEDS: NPH, Human Insulin Isophane 300 UNIT/3 ML VIAL SC SCH (08:52)
[2022-04-16] MEDS: Heparin 5,000 UNITS/ML VIAL SC SCH ×3 (09:09→22:26)
[2022-04-16] MEDS: Ergocalciferol 1.25 MG(50,000 UNITS) CAP PO SCH (11:30)
[2022-04-17] MEDS: diphenhydrAMINE 25 MG CAP PO PRN ×2 (00:23→13:55)
[2022-04-17] MEDS: HumaLOG 300 UNITS/3 ML VIAL SC PRN ×3 (05:46→21:36)
[2022-04-17] MEDS: Levothyroxine Sodium 88 MCG TAB PO SCH (05:46)
[2022-04-17] MEDS: Acetaminophen 500 MG TAB PO PRN ×2 (05:46→13:55)
[2022-04-17] MEDS: Aspirin 81 mg Enteric Coated Tablet PO SCH (08:08)
[2022-04-17] MEDS: Atorvastatin Calcium 40 MG TAB PO SCH (08:08)
[2022-04-17] MEDS: Ezetimibe 10 MG TAB PO SCH (08:09)
[2022-04-17] MEDS: Famotidine 20 MG TAB PO SCH (08:10)
[2022-04-17] MEDS: Gabapentin 100 MG CAP PO SCH (08:10)
[2022-04-17] MEDS: Cholecalciferol 1,000 UNITS (25 MCG) TAB PO SCH (08:10)
[2022-04-17] MEDS: Loratadine 10 MG TAB PO SCH (08:13)
[2022-04-17] MEDS: NIFEdipine XL 60 MG TAB PO SCH ×2 (08:13→21:36)
[2022-04-17] MEDS: Metoprolol Tartrate 50 MG TAB PO SCH ×2 (08:25→21:36)
[2022-04-17] MEDS: NPH, Human Insulin Isophane 300 UNIT/3 ML VIAL SC SCH (08:26)
[2022-04-17] MEDS: Heparin 5,000 UNITS/ML VIAL SC SCH ×3 (08:29→21:36)
[2022-04-17] MEDS ORDERED: Heparin 10,000 UNITS/ 10 ML VIAL ONE (12:37)
[2022-04-17] MEDS: hydrALAZINE 25 MG TAB PO SCH ×3 (13:23→21:36)
[2022-04-17] MEDS: Epoetin (ESRD) 10,000 UNITS/ML VIAL IVP SCH (13:58)
[2022-04-17] MEDS ORDERED: Fluconazole 100 MG TAB PO SCH (16:00)
[2022-04-18] MEDS: Levothyroxine Sodium 88 MCG TAB PO SCH (05:06)
[2022-04-18] MEDS: HumaLOG 300 UNITS/3 ML VIAL SC PRN ×3 (05:10→16:59)
[2022-04-18 05:16] LABS: #Eosinphils 0.1 thou/uL (0.0-0.7); #Lymphocytes 1.7 thou/uL (1.20-3.40); #Monocytes 0.9 thou/uL (0.11-0.59); #Neutrophils 5.8 thou/uL (1.40-6.50); %Basophils 0.5 % (0.0-1.0); %Eosinophils 1.1 % (0.0-10.0); %Lymphocytes 19.6 % (21.0-51.0); %Monocytes 10.9 % (0.0-10.0); %Neutrophils 67.9 % (42.0-75.0); Hemoglobin 8.1 g/dL (12.0-16.0); Mean Corpuscular HGB CONC 31.5 g/dL (32.0-36.0); Mean Corpuscular Volume 88.7 fL (78.0-98.0); Mean Platelet Volume 7.2 fL (7.4-10.4); Platelet Count 240 thou/uL (130-400); RBC Distribution Width 15.1 % (11.5-14.5); Red Blood Cell (RBC) Count 2.88 mill/uL (4.20-5.40); White Blood Cell (WBC) Count 8.5 thou/uL (4.8-10.8)
[2022-04-18 05:37] LABS: Anion Gap 13 mmol/L (10-20); BUN (Urea Nitrogen) 19 mg/dL (9.8-20.1); Calc. Creatinine Clearance 16 mL/min (70-130); Calcium 8.2 mg/dL (7.8-10.44); Carbon Dioxide 28 mmol/L (23-31); Chloride 100 mmol/L (98-107); Glucose 209 mg/dL (83-110); Potassium 3.6 mmol/L (3.5-5.1); Sodium 137 mmol/L (136-145)
[2022-04-18] MEDS: Aspirin 81 mg Enteric Coated Tablet PO SCH (10:13)
[2022-04-18] MEDS: Atorvastatin Calcium 40 MG TAB PO SCH (10:13)
[2022-04-18] MEDS: Ezetimibe 10 MG TAB PO SCH (10:14)
[2022-04-18] MEDS: Cholecalciferol 1,000 UNITS (25 MCG) TAB PO SCH (10:14)
[2022-04-18] MEDS: Gabapentin 100 MG CAP PO SCH (10:14)
[2022-04-18] MEDS: Famotidine 20 MG TAB PO SCH (10:14)
[2022-04-18] MEDS: hydrALAZINE 25 MG TAB PO SCH ×3 (10:15→21:20)
[2022-04-18] MEDS: Metoprolol Tartrate 50 MG TAB PO SCH ×2 (10:15→21:20)
[2022-04-18] MEDS: NIFEdipine XL 60 MG TAB PO SCH ×2 (10:16→21:20)
[2022-04-18] MEDS: Heparin 5,000 UNITS/ML VIAL SC SCH ×3 (10:17→21:20)
[2022-04-18] MEDS: diphenhydrAMINE 25 MG CAP PO PRN (10:17)
[2022-04-18] MEDS: NPH, Human Insulin Isophane 300 UNIT/3 ML VIAL SC SCH (10:18)
[2022-04-18 21:20] VITALS: BP 148/71
[2022-04-19] MEDS: HumaLOG 300 UNITS/3 ML VIAL SC PRN (05:41)
[2022-04-19] MEDS: Levothyroxine Sodium 88 MCG TAB PO SCH (05:42)
[2022-04-19] MEDS: Acetaminophen 500 MG TAB PO PRN (05:42)
[2022-04-19] MEDS: NPH, Human Insulin Isophane 300 UNIT/3 ML VIAL SC SCH (07:45)
[2022-04-19] MEDS: Aspirin 81 mg Enteric Coated Tablet PO SCH (07:46)
[2022-04-19] MEDS: Ezetimibe 10 MG TAB PO SCH (07:46)
[2022-04-19] MEDS: NIFEdipine XL 60 MG TAB PO SCH (07:46)
[2022-04-19] MEDS: hydrALAZINE 25 MG TAB PO SCH (07:47)
[2022-04-19] MEDS: Metoprolol Tartrate 50 MG TAB PO SCH (07:47)
[2022-04-19] MEDS: Loratadine 10 MG TAB PO SCH (07:47)
[2022-04-19] MEDS: Gabapentin 100 MG CAP PO SCH (07:48)
[2022-04-19] MEDS: Cholecalciferol 1,000 UNITS (25 MCG) TAB PO SCH (07:48)
[2022-04-19] MEDS: Atorvastatin Calcium 40 MG TAB PO SCH (07:48)
[2022-04-19] MEDS: Heparin 5,000 UNITS/ML VIAL SC SCH (07:49)
[2022-04-19] MEDS: Famotidine 20 MG TAB PO SCH (07:49)
[2022-04-19 08:45] VITALS: TEMP 98.2
[2022-04-19] MEDS ORDERED: Fluconazole 100 MG TAB PO SCH ×2 (09:00→12:00)
[2022-04-19] MEDS ORDERED: Gabapentin 100 MG CAP PO SCH ×2 (12:00→21:00)
[2022-04-19] MEDS ORDERED: Heparin 10,000 UNITS/ 10 ML VIAL ONE (12:40)
[2022-04-19] MEDS: Epoetin (ESRD) 10,000 UNITS/ML VIAL IVP SCH (12:45)
== END 2022-04-19 15:15 | disposition home health service (06) | DRG 264 ==
LOC: ERS 04:58 → ERHOLD 08:26 → OBSVTOIN 11:02 → 2NO 18:20 → MSONC 04-09 14:23
PROVIDERS: ADMIT Internal Medicine; ATTEND Internal Medicine
PROC: 5A1D70Z Performance of Urinary Filtration, Intermittent, Less than 6 Hours Per Day (ICD-10-PCS; principal; 2022-04-02)
PROC: 0JH60XZ Insertion of Tunneled Vascular Access Device into Chest Subcutaneous Tissue and Fascia, Open Approach (ICD-10-PCS; 2022-04-02)
PROC: 02HV33Z Insertion of Infusion Device into Superior Vena Cava, Percutaneous Approach (ICD-10-PCS; 2022-04-02)
PROC: 02HV33Z Insertion of Infusion Device into Superior Vena Cava, Percutaneous Approach (ICD-10-PCS; 2022-04-02)
PROC: B5181ZA Fluoroscopy of Superior Vena Cava using Low Osmolar Contrast, Guidance (ICD-10-PCS; 2022-04-02)
PROC: B548ZZA Ultrasonography of Superior Vena Cava, Guidance (ICD-10-PCS; 2022-04-02)
PROC: 031C0ZF Bypass Left Radial Artery to Lower Arm Vein, Open Approach (ICD-10-PCS; 2022-04-07)
DX: I13.2 Hypertensive heart and chronic kidney disease with heart failure and with stage 5 chronic kidney disease, or end stage renal disease (principal); Z20.822 Contact with and (suspected) exposure to COVID-19; Z66 Do not resuscitate; J96.21 Acute and chronic respiratory failure with hypoxia; I50.33 Acute on chronic diastolic (congestive) heart failure; N18.6 End stage renal disease; E87.2 Acidosis; E87.1 Hypo-osmolality and hyponatremia; E11.22 Type 2 diabetes mellitus with diabetic chronic kidney disease; J44.9 Chronic obstructive pulmonary disease, unspecified; E03.9 Hypothyroidism, unspecified; K21.9 Gastro-esophageal reflux disease without esophagitis; D63.1 Anemia in chronic kidney disease; E11.40 Type 2 diabetes mellitus with diabetic neuropathy, unspecified; E78.5 Hyperlipidemia, unspecified; E78.00 Pure hypercholesterolemia, unspecified; E66.9 Obesity, unspecified; E87.6 Hypokalemia; E88.09 Other disorders of plasma-protein metabolism, not elsewhere classified; R00.1 Bradycardia, unspecified; B37.3 Candidiasis of vulva and vagina; Z68.29 Body mass index [BMI] 29.0-29.9, adult; Z99.81 Dependence on supplemental oxygen; Z88.1 Allergy status to other antibiotic agents; Z90.49 Acquired absence of other specified parts of digestive tract; Z90.710 Acquired absence of both cervix and uterus; Z79.899 Other long term (current) drug therapy; Z79.82 Long term (current) use of aspirin; Z79.890 Hormone replacement therapy; Z79.4 Long term (current) use of insulin
CPT/HCPCS: 36415; 36416; 51702; 71045; 80048; 80053; 81001; 82140; 82553; 83690; 83735; 83880; 84484; 85014; 85018; 85025; 86580; 86704; 86706; 86850; 86900; 86901; 87340; 90935; 93005; 93970; 96374; C1751; C1752; C1776; G0257; J0360; J0690; J1644; J1815; J1940; J2001; J2250; J2405; J2704; J2720; Q4081; Q9967; S0020; S0028

== ENCOUNTER 2023-07-08 17:56 | Inpatient (IN) | payer MEDICARE ==
[2023-07-08 18:40] LABS: #Eosinphils 0.1 thou/uL (0.0-0.7); #Monocytes 0.8 thou/uL (0.11-0.59); %Basophils 0.3 % (0.0-1.0); %Eosinophils 1.3 % (0.0-10.0); %Lymphocytes 12.2 % (21.0-51.0); %Monocytes 8.1 % (0.0-10.0); %Neutrophils 77.7 % (42.0-75.0); Hematocrit 30.1 % (36.0-47.0); Mean Corpuscular HGB CONC 33.2 g/dL (32.0-36.0); Mean Corpuscular Volume 99.3 fl (78.0-98.0); Mean Platelet Volume 9.5 fL (7.4-10.4); Platelet Count 158 10x3/uL (130-400); RBC Distribution Width 13.4 % (11.5-14.5); Red Blood Cell (RBC) Count 3.03 mill/uL (4.20-5.40); White Blood Cell (WBC) Count 10.3 10x3/uL (4.8-10.8)
[2023-07-08] MEDS ORDERED: cefTRIAXone (ROCEPHIN) 2 GM VIAL ONE (18:44)
[2023-07-08 18:48] LABS: PTT 26.6 sec (22.9-36.1)
[2023-07-08 19:07] LABS: ALT (SGPT) Less than 7 U/L (8-55); AST (SGOT) 24 U/L (5-34); Alkaline Phosphatase 60 U/L (40-110); Anion Gap 16 mmol/L (10-20); BUN (Urea Nitrogen) 9 mg/dL (9.8-20.1); Bilirubin, Total 0.4 mg/dL (0.2-1.2); Calc. Creatinine Clearance 0 mL/min (70-130); Calcium 8.7 mg/dL (7.8-10.44); Carbon Dioxide 29 mmol/L (23-31); Chloride 97 mmol/L (98-107); Estimated GFR 17; Globulin 3.1 g/dL (2.4-3.5); Glucose 183 mg/dL (83-110); Potassium 3.3 mmol/L (3.5-5.1); Protein, Total 7.1 g/dL (5.8-8.1); Sodium 139 mmol/L (136-145)
[2023-07-08 19:22] LABS: Actual Bicarbonate (HCO3v) 24.2 mEq/L (22-28); Base Excess 0.8 mEq/L (-2.0 to +3.0); Calcium, Ionized (venous) 0.97 mmol/L (1.16-1.32); Chloride (VBG) 99 mmol/L (98-106); Hematocrit-VBG 31 % (36.0-47.0); Hemoglobin (Hb) 10.6 g/dL (11.7-16.1); Potassium (VBG) 3.13 mmol/L (3.70-5.30); Sodium 136.8 mmol/L (133-146); pH (venous) 7.466 (7.32-7.43)
[2023-07-08 19:23] LABS: CKMB 5.1 ng/mL (0-6.6)
[2023-07-08] MEDS ORDERED: Aspirin Chewable 81 MG TAB ONE (19:38)
[2023-07-08 19:53] LABS: Bacteria/HPF 4+ HPF (None Seen); Bilirubin Negative (Negative); Blood, Urine 1+ (Negative); CAUTI Indications for Culture Alt mental st,lethar; Clarity Extra Turbid (Clear); Glucose, Urine (Dipstick) Normal (Negative); Ketone, Urine 10 mg/dL (Negative); Leukocyte 500 Leu/uL (Negative); Nitrite Negative (Negative); Protein, Urine (Dipstick) 300 mg/dL (Neg-Trace); Specific Gravity, Urine 1.019 (1.002-1.036); Squamous Epithelial None Seen HPF (0-3); Urobilinogen Normal mg/dL (Less than 2); WBC/HPF Greater than 50 HPF (0-3)
[2023-07-08 19:55] LABS: Urine Culture Reflex Yes Yes
[2023-07-08] MEDS ORDERED: Ondansetron ODT 4 MG TAB SL PRN (21:45)
[2023-07-08] MEDS ORDERED: Ondansetron PF 4 MG/2 ML Vial IVP PRN ×2 (21:45→22:21)
[2023-07-08] MEDS ORDERED: Acetaminophen 325 MG TAB PO PRN (21:45)
[2023-07-08] MEDS ORDERED: diphenhydrAMINE 50 MG/ML VIAL ONE (21:51)
[2023-07-08] MEDS ORDERED: Acetaminophen 500 MG TAB ONE (21:51)
[2023-07-08] MEDS ORDERED: Dextrose 5% in Water 1,000 ML IV PRN (22:21)
[2023-07-08] MEDS ORDERED: Dextrose 50% Abboject 50 ML SYRINGE SLOW IVP PRN (22:21)
[2023-07-08] MEDS ORDERED: Glucagon 1 MG/ML KIT IM PRN (22:21)
[2023-07-08] MEDS ORDERED: HumaLOG 300 UNITS/3 ML VIAL SC PRN (22:24)
[2023-07-08] MEDS ORDERED: Lactated Ringer's 500 ML IV SCH (22:30)
[2023-07-09] MEDS: HYDROcodone/Acetaminophen 5/325 mg Tablet PO PRN (00:12)
[2023-07-09 00:25] LABS: Troponin I 0.056 ng/mL (< 0.028)
[2023-07-09] MEDS ORDERED: Lactated Ringer's 500 ML IV SCH (00:30)
[2023-07-09] MEDS ORDERED: hydrOXYzine 25 MG TAB PO PRN (00:57)
[2023-07-09] MEDS ORDERED: Levothyroxine Sodium 25 MCG TAB PO SCH (06:00)
[2023-07-09 06:23] LABS: #Eosinphils 0.2 thou/uL (0.0-0.7); #Monocytes 0.7 thou/uL (0.11-0.59); #Neutrophils 4.9 thou/uL (1.40-6.50); %Basophils 0.4 % (0.0-1.0); %Eosinophils 2.9 % (0.0-10.0); %Lymphocytes 16.9 % (21.0-51.0); %Monocytes 10.1 % (0.0-10.0); %Neutrophils 69.3 % (42.0-75.0); Hematocrit 28.4 % (36.0-47.0); Hemoglobin 9.2 g/dL (12.0-16.0); Mean Corpuscular HGB CONC 32.4 g/dL (32.0-36.0); Mean Corpuscular Hemoglobin 33.1 pg (27.0-31.0); Mean Corpuscular Volume 102.2 fl (78.0-98.0); Mean Platelet Volume 9.7 fL (7.4-10.4); Platelet Count 146 10x3/uL (130-400); RBC Distribution Width 13.3 % (11.5-14.5); Red Blood Cell (RBC) Count 2.78 mill/uL (4.20-5.40); White Blood Cell (WBC) Count 7.1 10x3/uL (4.8-10.8)
[2023-07-09 06:45] LABS: ALT (SGPT) Less than 7 U/L (8-55); AST (SGOT) 24 U/L (5-34); Albumin 3.2 g/dL (3.4-4.8); Alkaline Phosphatase 49 U/L (40-110); Anion Gap 13 mmol/L (10-20); BUN (Urea Nitrogen) 17 mg/dL (9.8-20.1); Bilirubin, Total 0.3 mg/dL (0.2-1.2); Calc. Creatinine Clearance 14 mL/min (70-130); Calcium 7.9 mg/dL (7.8-10.44); Carbon Dioxide 28 mmol/L (23-31); Chloride 102 mmol/L (98-107); Estimated GFR 11; Globulin 2.5 g/dL (2.4-3.5); Glucose 134 mg/dL (83-110); Potassium 3.2 mmol/L (3.5-5.1); Protein, Total 5.7 g/dL (5.8-8.1); Sodium 140 mmol/L (136-145)
[2023-07-09] MEDS ORDERED: hydrALAZINE 20 MG/ML VIAL SLOW IVP PRN (08:24)
[2023-07-09] MEDS: Atorvastatin Calcium 40 MG TAB PO SCH (08:57)
[2023-07-09] MEDS: Ezetimibe 10 MG TAB PO SCH (08:57)
[2023-07-09] MEDS: Apixaban 2.5 MG TAB PO SCH ×2 (08:57→21:13)
[2023-07-09] MEDS: Calcium Acetate 667 MG CAP PO SCH ×3 (08:57→16:43)
[2023-07-09] MEDS ORDERED: Liothyronine Sodium 5 MCG TAB PO SCH (09:00)
[2023-07-09] MEDS ORDERED: Potassium Chloride 20 MEQ TAB PO SCH ×2 (09:00→13:00)
[2023-07-09] MEDS ORDERED: Heparin 5,000 UNITS/ML VIAL SC SCH (09:00)
[2023-07-09 09:01] LABS: Magnesium 1.8 mg/dL (1.6-2.6)
[2023-07-09] MEDS: Insulin NPH Human Isophane 100 UNITS/ML (10 ML VIAL) SQ SCH ×2 (09:39→21:13)
[2023-07-09] MEDS ORDERED: Fosfomycin 3 GM/Packet PO SCH (10:15)
[2023-07-09] MEDS ORDERED: NIFEdipine XL 60 MG TAB PO SCH (10:15)
[2023-07-09] MEDS ORDERED: cloNIDine 0.1 MG TAB PO PRN (10:16)
[2023-07-09] MEDS ORDERED: cloNIDine 0.1 MG TAB PO SCH (10:30)
[2023-07-09] MEDS: HumaLOG 300 UNITS/3 ML VIAL SC PRN (12:45)
[2023-07-09] MEDS ORDERED: cefTRIAXone\\ROCEPHIN 1 GM in Sodium Chloride 0.9% 100 ML IVPB SCH (18:00)
[2023-07-10 05:54] LABS: #Eosinphils 0.2 thou/uL (0.0-0.7); #Monocytes 0.7 thou/uL (0.11-0.59); %Basophils 0.2 % (0.0-1.0); %Eosinophils 2.4 % (0.0-10.0); %Lymphocytes 12.4 % (21.0-51.0); %Monocytes 7.8 % (0.0-10.0); %Neutrophils 76.8 % (42.0-75.0); Hemoglobin 8.8 g/dL (12.0-16.0); Mean Corpuscular HGB CONC 32.6 g/dL (32.0-36.0); Mean Corpuscular Hemoglobin 33.5 pg (27.0-31.0); Mean Corpuscular Volume 102.7 fl (78.0-98.0); Mean Platelet Volume 9.6 fL (7.4-10.4); Platelet Count 157 10x3/uL (130-400); RBC Distribution Width 13.5 % (11.5-14.5); Red Blood Cell (RBC) Count 2.63 mill/uL (4.20-5.40); White Blood Cell (WBC) Count 9.1 10x3/uL (4.8-10.8)
[2023-07-10] MEDS: Levothyroxine Sodium 125 MCG TAB PO SCH (06:18)
[2023-07-10] MEDS: HYDROcodone/Acetaminophen 5/325 mg Tablet PO PRN ×2 (06:21→18:17)
[2023-07-10 06:58] LABS: ALT (SGPT) Less than 7 U/L (8-55); AST (SGOT) 31 U/L (5-34); Albumin 3.2 g/dL (3.4-4.8); Alkaline Phosphatase 51 U/L (40-110); Anion Gap 15 mmol/L (10-20); BUN (Urea Nitrogen) 23 mg/dL (9.8-20.1); Bilirubin, Total 0.3 mg/dL (0.2-1.2); Calc. Creatinine Clearance 10 mL/min (70-130); Calcium 9.4 mg/dL (7.8-10.44); Carbon Dioxide 26 mmol/L (23-31); Chloride 103 mmol/L (98-107); Estimated GFR 7; Globulin 2.8 g/dL (2.4-3.5); Glucose 69 mg/dL (83-110); Potassium 3.5 mmol/L (3.5-5.1); Sodium 140 mmol/L (136-145)
[2023-07-10] MEDS: Calcium Acetate 667 MG CAP PO SCH ×3 (08:05→16:25)
[2023-07-10] MEDS: Acetaminophen 325 MG TAB PO PRN (08:05)
[2023-07-10] MEDS: Atorvastatin Calcium 40 MG TAB PO SCH (08:06)
[2023-07-10] MEDS: Ezetimibe 10 MG TAB PO SCH (08:06)
[2023-07-10] MEDS: Apixaban 2.5 MG TAB PO SCH ×2 (08:06→21:59)
[2023-07-10] MEDS: Insulin NPH Human Isophane 100 UNITS/ML (10 ML VIAL) SQ SCH (08:07)
[2023-07-10] MEDS: Gabapentin 300 MG CAP PO SCH (08:55)
[2023-07-10] MEDS: Sertraline 100 MG TAB PO SCH (08:55)
[2023-07-10] MEDS ORDERED: NIFEdipine XL 60 MG TAB PO SCH (09:00)
[2023-07-10] MEDS ORDERED: Heparin 10,000 UNITS/ 10 ML VIAL ONE (11:25)
[2023-07-10] MEDS: hydrALAZINE 25 MG TAB PO SCH ×2 (12:08→16:25)
[2023-07-10] MEDS: NIFEdipine XL 60 MG TAB PO SCH (16:25)
[2023-07-10] MEDS: Metoprolol Tartrate 25 MG TAB PO SCH ×2 (16:26→18:35)
[2023-07-10] MEDS ORDERED: dilTIAZem 125 MG in Sodium Chloride 0.9% 100 ML IVPB SCH (19:30)
[2023-07-10] MEDS ORDERED: dilTIAZem 25 MG/5 ML VIAL SLOW IVP SCH (19:45)
[2023-07-10 19:49] LABS: HBSAB Concentration Less than 8.00 mIU/mL; Hep B Surf AB Non-Reactive (NonReactive); Hep C IgG Ab Non-Reactive S/CO (NonReactive); Hep C Index 0.07 S/CO (0-0.79)
[2023-07-10 19:50] LABS: Hep B Core Total Ab Non-Reactive (NonReactive); Hep B Core Total Index 0.09 S/CO (0-0.79)
[2023-07-10 19:52] LABS: HBSAg Index 0.25 S/CO (0-0.99); Hep B Surf Ag Non-Reactive S/CO (NonReactive)
[2023-07-10 20:42] LABS: Phosphorus 1.2 mg/dL (2.3-4.7)
[2023-07-10 20:46] LABS: ALT (SGPT) Less than 7 U/L (8-55); AST (SGOT) 34 U/L (5-34); Alkaline Phosphatase 71 U/L (40-110); Anion Gap 16 mmol/L (10-20); BUN (Urea Nitrogen) 5 mg/dL (9.8-20.1); Bilirubin, Total 0.5 mg/dL (0.2-1.2); Calc. Creatinine Clearance 32 mL/min (70-130); Calcium 9.4 mg/dL (7.8-10.44); Carbon Dioxide 25 mmol/L (23-31); Chloride 97 mmol/L (98-107); Estimated GFR 30; Globulin 3.4 g/dL (2.4-3.5); Glucose 125 mg/dL (83-110); Magnesium 1.7 mg/dL (1.6-2.6); Potassium 2.7 mmol/L (3.5-5.1); Protein, Total 7.4 g/dL (5.8-8.1); Sodium 135 mmol/L (136-145)
[2023-07-10 23:44] LABS: Troponin I 0.069 ng/mL (< 0.028)
[2023-07-11] MEDS: HYDROcodone/Acetaminophen 5/325 mg Tablet PO PRN (00:43)
[2023-07-11] MEDS: Insulin NPH Human Isophane 100 UNITS/ML (10 ML VIAL) SQ SCH ×3 (00:45→22:49)
[2023-07-11 03:59] LABS: #Eosinphils 0.1 thou/uL (0.0-0.7); #Monocytes 0.9 thou/uL (0.11-0.59); #Neutrophils 7.1 thou/uL (1.40-6.50); %Basophils 0.4 % (0.0-1.0); %Eosinophils 1.3 % (0.0-10.0); %Lymphocytes 16.9 % (21.0-51.0); %Monocytes 9.4 % (0.0-10.0); %Neutrophils 71.7 % (42.0-75.0); Hematocrit 28.9 % (36.0-47.0); Hemoglobin 9.2 g/dL (12.0-16.0); Mean Corpuscular HGB CONC 31.8 g/dL (32.0-36.0); Mean Corpuscular Hemoglobin 32.5 pg (27.0-31.0); Mean Corpuscular Volume 102.1 fl (78.0-98.0); Mean Platelet Volume 9.7 fL (7.4-10.4); Platelet Count 185 10x3/uL (130-400); RBC Distribution Width 13.8 % (11.5-14.5); Red Blood Cell (RBC) Count 2.83 mill/uL (4.20-5.40); White Blood Cell (WBC) Count 9.9 10x3/uL (4.8-10.8)
[2023-07-11 04:37] LABS: ALT (SGPT) Less than 7 U/L (8-55); AST (SGOT) 30 U/L (5-34); Albumin 3.4 g/dL (3.4-4.8); Alkaline Phosphatase 60 U/L (40-110); Anion Gap 12 mmol/L (10-20); BUN (Urea Nitrogen) 8 mg/dL (9.8-20.1); Bilirubin, Total 0.5 mg/dL (0.2-1.2); Calc. Creatinine Clearance 17 mL/min (70-130); Calcium 9.4 mg/dL (7.8-10.44); Carbon Dioxide 28 mmol/L (23-31); Chloride 99 mmol/L (98-107); Estimated GFR 14; Glucose 103 mg/dL (83-110); Potassium 3.5 mmol/L (3.5-5.1); Protein, Total 6.4 g/dL (5.8-8.1); Sodium 135 mmol/L (136-145)
[2023-07-11] MEDS: Levothyroxine Sodium 125 MCG TAB PO SCH (06:19)
[2023-07-11] MEDS ORDERED: Potassium Chloride 20 MEQ TAB PO SCH (09:15)
[2023-07-11] MEDS: Calcium Acetate 667 MG CAP PO SCH ×4 (09:23→18:32)
[2023-07-11] MEDS: Atorvastatin Calcium 40 MG TAB PO SCH (09:23)
[2023-07-11] MEDS: hydrALAZINE 25 MG TAB PO SCH ×3 (09:23→18:32)
[2023-07-11] MEDS: Sertraline 100 MG TAB PO SCH (09:23)
[2023-07-11] MEDS: Ezetimibe 10 MG TAB PO SCH (09:24)
[2023-07-11] MEDS: Gabapentin 300 MG CAP PO SCH (09:24)
[2023-07-11] MEDS: Apixaban 2.5 MG TAB PO SCH ×2 (09:24→21:15)
[2023-07-11] MEDS: NIFEdipine XL 60 MG TAB PO SCH ×2 (09:24→18:32)
[2023-07-11] MEDS: Metoprolol Tartrate 25 MG TAB PO SCH (10:36)
[2023-07-11] MEDS ORDERED: Metoprolol Tartrate 50 MG TAB PO SCH ×2 (18:15→21:00)
[2023-07-11] MEDS: HumaLOG 300 UNITS/3 ML VIAL SC PRN (18:31)
[2023-07-12 04:19] LABS: #Eosinphils 0.3 thou/uL (0.0-0.7); #Monocytes 0.9 thou/uL (0.11-0.59); #Neutrophils 4.2 thou/uL (1.40-6.50); %Basophils 0.6 % (0.0-1.0); %Eosinophils 4.4 % (0.0-10.0); %Monocytes 12.6 % (0.0-10.0); %Neutrophils 58.6 % (42.0-75.0); Hemoglobin 9.7 g/dL (12.0-16.0); Mean Corpuscular HGB CONC 32.3 g/dL (32.0-36.0); Mean Corpuscular Hemoglobin 33.4 pg (27.0-31.0); Mean Corpuscular Volume 103.4 fl (78.0-98.0); Mean Platelet Volume 9.9 fL (7.4-10.4); Platelet Count 200 10x3/uL (130-400); RBC Distribution Width 14.1 % (11.5-14.5); White Blood Cell (WBC) Count 7.2 10x3/uL (4.8-10.8)
[2023-07-12 04:55] LABS: ALT (SGPT) Less than 7 U/L (8-55); AST (SGOT) 25 U/L (5-34); Albumin 3.5 g/dL (3.4-4.8); Alkaline Phosphatase 58 U/L (40-110); Anion Gap 15 mmol/L (10-20); BUN (Urea Nitrogen) 24 mg/dL (9.8-20.1); Bilirubin, Total 0.4 mg/dL (0.2-1.2); Calc. Creatinine Clearance 9 mL/min (70-130); Calcium 9.8 mg/dL (7.8-10.44); Carbon Dioxide 25 mmol/L (23-31); Chloride 99 mmol/L (98-107); Estimated GFR 7; Glucose 158 mg/dL (83-110); Potassium 4.7 mmol/L (3.5-5.1); Protein, Total 6.5 g/dL (5.8-8.1); Sodium 134 mmol/L (136-145)
[2023-07-12] MEDS: Levothyroxine Sodium 125 MCG TAB PO SCH (06:15)
[2023-07-12] MEDS ORDERED: Insulin NPH Human Isophane 100 UNITS/ML (10 ML VIAL) SQ SCH (07:51)
[2023-07-12] MEDS: NIFEdipine XL 60 MG TAB PO SCH ×2 (10:13→17:41)
[2023-07-12] MEDS: Calcium Acetate 667 MG CAP PO SCH ×3 (10:13→17:41)
[2023-07-12] MEDS: Gabapentin 300 MG CAP PO SCH (10:14)
[2023-07-12] MEDS: Atorvastatin Calcium 40 MG TAB PO SCH (10:14)
[2023-07-12] MEDS: hydrALAZINE 25 MG TAB PO SCH ×3 (10:14→17:41)
[2023-07-12] MEDS: Apixaban 2.5 MG TAB PO SCH ×2 (10:14→20:32)
[2023-07-12] MEDS: Ezetimibe 10 MG TAB PO SCH (10:14)
[2023-07-12] MEDS: Insulin NPH Human Isophane 100 UNITS/ML (10 ML VIAL) SQ SCH ×2 (10:15→21:43)
[2023-07-12] MEDS: Polyethylene Glycol 3350 17 GM Packet PO SCH (10:16)
[2023-07-12] MEDS: Metoprolol Tartrate 50 MG TAB PO SCH ×2 (10:16→20:32)
[2023-07-12] MEDS: Sertraline 100 MG TAB PO SCH (10:16)
[2023-07-12] MEDS: HYDROcodone/Acetaminophen 5/325 mg Tablet PO PRN ×2 (10:24→20:35)
[2023-07-12] MEDS: HumaLOG 300 UNITS/3 ML VIAL SC PRN (12:00)
[2023-07-13 04:20] LABS: #Eosinphils 0.4 thou/uL (0.0-0.7); #Monocytes 0.9 thou/uL (0.11-0.59); #Neutrophils 7.4 thou/uL (1.40-6.50); %Basophils 0.4 % (0.0-1.0); %Eosinophils 3.8 % (0.0-10.0); %Lymphocytes 18.3 % (21.0-51.0); %Monocytes 8.6 % (0.0-10.0); %Neutrophils 68.3 % (42.0-75.0); Hematocrit 30.4 % (36.0-47.0); Hemoglobin 9.8 g/dL (12.0-16.0); Mean Corpuscular HGB CONC 32.2 g/dL (32.0-36.0); Mean Corpuscular Hemoglobin 33.2 pg (27.0-31.0); Mean Corpuscular Volume 103.1 fl (78.0-98.0); Mean Platelet Volume 10.3 fL (7.4-10.4); Platelet Count 226 10x3/uL (130-400); RBC Distribution Width 14.4 % (11.5-14.5); Red Blood Cell (RBC) Count 2.95 mill/uL (4.20-5.40); White Blood Cell (WBC) Count 10.8 10x3/uL (4.8-10.8)
[2023-07-13 04:46] LABS: ALT (SGPT) Less than 7 U/L (8-55); AST (SGOT) 19 U/L (5-34); Albumin 3.4 g/dL (3.4-4.8); Alkaline Phosphatase 61 U/L (40-110); Anion Gap 16 mmol/L (10-20); BUN (Urea Nitrogen) 37 mg/dL (9.8-20.1); Bilirubin, Total 0.3 mg/dL (0.2-1.2); Calc. Creatinine Clearance 7 mL/min (70-130); Carbon Dioxide 25 mmol/L (23-31); Chloride 99 mmol/L (98-107); Estimated GFR 5; Globulin 2.9 g/dL (2.4-3.5); Glucose 117 mg/dL (83-110); Potassium 4.6 mmol/L (3.5-5.1); Protein, Total 6.3 g/dL (5.8-8.1); Sodium 135 mmol/L (136-145)
[2023-07-13] MEDS: Levothyroxine Sodium 125 MCG TAB PO SCH (06:13)
[2023-07-13] MEDS: hydrALAZINE 25 MG TAB PO SCH ×3 (07:46→18:00)
[2023-07-13] MEDS: Atorvastatin Calcium 40 MG TAB PO SCH (07:46)
[2023-07-13] MEDS: Apixaban 2.5 MG TAB PO SCH ×2 (07:47→20:32)
[2023-07-13] MEDS: Ezetimibe 10 MG TAB PO SCH (07:47)
[2023-07-13] MEDS: Calcium Acetate 667 MG CAP PO SCH ×3 (07:47→18:03)
[2023-07-13] MEDS: Acetaminophen 325 MG TAB PO PRN ×2 (07:47→23:52)
[2023-07-13] MEDS: Metoprolol Tartrate 50 MG TAB PO SCH ×2 (07:47→20:32)
[2023-07-13] MEDS: Sertraline 100 MG TAB PO SCH (07:48)
[2023-07-13] MEDS: Gabapentin 300 MG CAP PO SCH (07:48)
[2023-07-13] MEDS: NIFEdipine XL 60 MG TAB PO SCH ×2 (07:48→18:00)
[2023-07-13] MEDS: Polyethylene Glycol 3350 17 GM Packet PO SCH (07:49)
[2023-07-13] MEDS ORDERED: Heparin 10,000 UNITS/ 10 ML VIAL ONE (08:34)
[2023-07-13] MEDS: HYDROcodone/Acetaminophen 5/325 mg Tablet PO PRN ×2 (09:58→20:32)
[2023-07-13] MEDS: Insulin NPH Human Isophane 100 UNITS/ML (10 ML VIAL) SQ SCH ×3 (10:00→21:39)
[2023-07-13] MEDS ORDERED: Mirtazapine 15 MG Soltab PO SCH (21:00)
[2023-07-14 03:52] LABS: #Eosinphils 0.3 thou/uL (0.0-0.7); #Monocytes 0.9 thou/uL (0.11-0.59); #Neutrophils 6.7 thou/uL (1.40-6.50); %Basophils 0.3 % (0.0-1.0); %Eosinophils 3.3 % (0.0-10.0); %Monocytes 9.5 % (0.0-10.0); %Neutrophils 68.3 % (42.0-75.0); Hematocrit 30.5 % (36.0-47.0); Hemoglobin 9.8 g/dL (12.0-16.0); Mean Corpuscular HGB CONC 32.1 g/dL (32.0-36.0); Mean Corpuscular Hemoglobin 32.8 pg (27.0-31.0); Mean Platelet Volume 10.1 fL (7.4-10.4); Platelet Count 203 10x3/uL (130-400); RBC Distribution Width 14.3 % (11.5-14.5); Red Blood Cell (RBC) Count 2.99 mill/uL (4.20-5.40); White Blood Cell (WBC) Count 9.7 10x3/uL (4.8-10.8)
[2023-07-14 04:18] LABS: ALT (SGPT) Less than 7 U/L (8-55); AST (SGOT) 16 U/L (5-34); Albumin 3.3 g/dL (3.4-4.8); Alkaline Phosphatase 67 U/L (40-110); Anion Gap 12 mmol/L (10-20); BUN (Urea Nitrogen) 17 mg/dL (9.8-20.1); Bilirubin, Total 0.4 mg/dL (0.2-1.2); Calc. Creatinine Clearance 12 mL/min (70-130); Calcium 9.1 mg/dL (7.8-10.44); Carbon Dioxide 26 mmol/L (23-31); Chloride 101 mmol/L (98-107); Estimated GFR 10; Globulin 2.9 g/dL (2.4-3.5); Glucose 158 mg/dL (83-110); Potassium 3.8 mmol/L (3.5-5.1); Protein, Total 6.2 g/dL (5.8-8.1); Sodium 135 mmol/L (136-145)
[2023-07-14] MEDS: Levothyroxine Sodium 125 MCG TAB PO SCH (05:00)
[2023-07-14] MEDS: NIFEdipine XL 60 MG TAB PO SCH (09:37)
[2023-07-14] MEDS: Polyethylene Glycol 3350 17 GM Packet PO SCH (09:37)
[2023-07-14] MEDS: Atorvastatin Calcium 40 MG TAB PO SCH (09:40)
[2023-07-14] MEDS: hydrALAZINE 25 MG TAB PO SCH ×2 (09:40→12:17)
[2023-07-14] MEDS: Apixaban 2.5 MG TAB PO SCH (09:40)
[2023-07-14] MEDS: Gabapentin 300 MG CAP PO SCH (09:41)
[2023-07-14] MEDS: Ezetimibe 10 MG TAB PO SCH (09:41)
[2023-07-14] MEDS: Insulin NPH Human Isophane 100 UNITS/ML (10 ML VIAL) SQ SCH (09:42)
[2023-07-14] MEDS: Acetaminophen 325 MG TAB PO PRN (09:43)
[2023-07-14] MEDS: Metoprolol Tartrate 50 MG TAB PO SCH (09:45)
[2023-07-14] MEDS: Sertraline 100 MG TAB PO SCH (09:45)
[2023-07-14] MEDS: Calcium Acetate 667 MG CAP PO SCH ×2 (09:57→12:17)
[2023-07-14 11:48] VITALS: BP 153/67; TEMP 97.9
[2023-07-14 13:45] VITALS: BMI 28.6
[2023-07-15] MEDS ORDERED: EPOETIN ALFA-EPBX (ESRD) 10,000 UNITS/ML VIAL IVP SCH (09:00)
== END 2023-07-14 14:35 | disposition home health service (06) | DRG 689 ==
LOC: ERS 17:56 → T4-B 21:39 → 2NO 07-10 20:47
PROVIDERS: ADMIT Family Medicine; ATTEND Family Medicine
PROC: 5A1D70Z Performance of Urinary Filtration, Intermittent, Less than 6 Hours Per Day (ICD-10-PCS; principal; 2023-07-10)
DX: N39.0 Urinary tract infection, site not specified (principal); G93.41 Metabolic encephalopathy; N18.6 End stage renal disease; I13.2 Hypertensive heart and chronic kidney disease with heart failure and with stage 5 chronic kidney disease, or end stage renal disease; E87.3 Alkalosis; I50.32 Chronic diastolic (congestive) heart failure; E11.22 Type 2 diabetes mellitus with diabetic chronic kidney disease; J44.9 Chronic obstructive pulmonary disease, unspecified; I48.91 Unspecified atrial fibrillation; R53.81 Other malaise; E87.6 Hypokalemia; E03.9 Hypothyroidism, unspecified; G47.33 Obstructive sleep apnea (adult) (pediatric); D53.9 Nutritional anemia, unspecified; Z66 Do not resuscitate; K21.9 Gastro-esophageal reflux disease without esophagitis; M19.90 Unspecified osteoarthritis, unspecified site; E11.40 Type 2 diabetes mellitus with diabetic neuropathy, unspecified; E78.00 Pure hypercholesterolemia, unspecified; I48.0 Paroxysmal atrial fibrillation; K59.00 Constipation, unspecified; D63.1 Anemia in chronic kidney disease; Z79.01 Long term (current) use of anticoagulants; Z90.49 Acquired absence of other specified parts of digestive tract; Z79.4 Long term (current) use of insulin; Z79.899 Other long term (current) drug therapy; Z90.710 Acquired absence of both cervix and uterus; Z98.890 Other specified postprocedural states; Z99.2 Dependence on renal dialysis; Z88.1 Allergy status to other antibiotic agents; Z83.3 Family history of diabetes mellitus; Z80.0 Family history of malignant neoplasm of digestive organs; F03.90 Unspecified dementia, unspecified severity, without behavioral disturbance, psychotic disturbance, mood disturbance, and anxiety; E83.39 Other disorders of phosphorus metabolism; Z86.73 Personal history of transient ischemic attack (TIA), and cerebral infarction without residual deficits
CPT/HCPCS: 36415; 36416; 51701; 51798; 70450; 71045; 80048; 80053; 81001; 82553; 82805; 83605; 83735; 83880; 84100; 84443; 84484; 85025; 85610; 85730; 86704; 87040; 87077; 87086; 87186; 90935; 93005; 93010; 94760; 96365; 96372; 96375; G0257; G0378; J0360; J0696; J1200; J1644; J1815; J2270; J2405; J7120; Q0162

== ENCOUNTER 2023-07-16 20:12 | Observation (INO) | payer MEDICARE ==
[2023-07-16 21:13] VITALS: BMI 28.2
[2023-07-17] MEDS ORDERED: Ondansetron PF 4 MG/2 ML Vial IVP PRN (03:58)
[2023-07-17] MEDS ORDERED: Ondansetron ODT 4 MG TAB PO PRN (03:58)
[2023-07-17] MEDS ORDERED: Acetaminophen 650 MG Suppository PR PRN (03:58)
[2023-07-17] MEDS ORDERED: Glucagon 1 MG/ML KIT IM PRN (04:02)
[2023-07-17] MEDS ORDERED: Dextrose 50% Abboject 50 ML SYRINGE SLOW IVP PRN (04:02)
[2023-07-17] MEDS ORDERED: Dextrose 5% in Water 1,000 ML IV PRN (04:02)
[2023-07-17] MEDS ORDERED: HumaLOG 300 UNITS/3 ML VIAL SC PRN (04:02)
[2023-07-17] MEDS ORDERED: hydrALAZINE 20 MG/ML VIAL SLOW IVP PRN (04:04)
[2023-07-17 06:33] LABS: #Eosinphils 0.3 thou/uL (0.0-0.7); #Monocytes 0.9 thou/uL (0.11-0.59); #Neutrophils 4.5 thou/uL (1.40-6.50); %Basophils 0.4 % (0.0-1.0); %Eosinophils 4.6 % (0.0-10.0); %Lymphocytes 20.5 % (21.0-51.0); %Monocytes 12.4 % (0.0-10.0); %Neutrophils 61.3 % (42.0-75.0); Hematocrit 28.3 % (36.0-47.0); Hemoglobin 9.4 g/dL (12.0-16.0); Mean Corpuscular HGB CONC 33.2 g/dL (32.0-36.0); Mean Corpuscular Hemoglobin 33.5 pg (27.0-31.0); Mean Corpuscular Volume 100.7 fl (78.0-98.0); Mean Platelet Volume 9.4 fL (7.4-10.4); Platelet Count 203 10x3/uL (130-400); RBC Distribution Width 14.3 % (11.5-14.5); Red Blood Cell (RBC) Count 2.81 mill/uL (4.20-5.40); White Blood Cell (WBC) Count 7.4 10x3/uL (4.8-10.8)
[2023-07-17 06:59] LABS: Anion Gap 15 mmol/L (10-20); BUN (Urea Nitrogen) 35 mg/dL (9.8-20.1); Calc. Creatinine Clearance 9 mL/min (70-130); Calcium 8.6 mg/dL (7.8-10.44); Carbon Dioxide 28 mmol/L (23-31); Chloride 97 mmol/L (98-107); Estimated GFR 7; Glucose 139 mg/dL (83-110); Potassium 3.6 mmol/L (3.5-5.1); Sodium 136 mmol/L (136-145)
[2023-07-17] MEDS ORDERED: Heparin 10,000 UNITS/ 10 ML VIAL ONE (08:34)
[2023-07-17] MEDS: Aspirin 81 mg Enteric Coated Tablet PO SCH (09:19)
[2023-07-17] MEDS: Calcium Acetate 667 MG CAP PO SCH ×2 (11:23→21:31)
[2023-07-17] MEDS: NIFEdipine XL 60 MG TAB PO SCH (11:23)
[2023-07-17] MEDS: hydrALAZINE 25 MG TAB PO SCH ×2 (11:24→21:31)
[2023-07-17] MEDS: HumaLOG 300 UNITS/3 ML VIAL SC PRN (11:25)
[2023-07-17] MEDS ORDERED: Insulin NPH Human Isophane 100 UNITS/ML (10 ML VIAL) SC SCH (17:00)
[2023-07-17] MEDS ORDERED: Atorvastatin Calcium 40 MG TAB PO SCH (21:00)
[2023-07-17] MEDS: Acetaminophen 325 MG TAB PO PRN (21:32)
[2023-07-17] MEDS: Apixaban 2.5 MG TAB PO SCH (21:32)
[2023-07-17] MEDS: Furosemide 20 MG TAB PO SCH (21:32)
[2023-07-18] MEDS: Acetaminophen 325 MG TAB PO PRN ×2 (01:14→09:40)
[2023-07-18 04:17] LABS: #Basophils 0.1 thou/uL (0.0-0.2); #Eosinphils 0.3 thou/uL (0.0-0.7); #Monocytes 0.8 thou/uL (0.11-0.59); #Neutrophils 5.1 thou/uL (1.40-6.50); %Basophils 0.6 % (0.0-1.0); %Eosinophils 3.9 % (0.0-10.0); %Lymphocytes 20.4 % (21.0-51.0); %Monocytes 10.2 % (0.0-10.0); %Neutrophils 64.4 % (42.0-75.0); Hematocrit 31.3 % (36.0-47.0); Hemoglobin 10.1 g/dL (12.0-16.0); Mean Corpuscular HGB CONC 32.3 g/dL (32.0-36.0); Mean Corpuscular Hemoglobin 32.8 pg (27.0-31.0); Mean Corpuscular Volume 101.6 fl (78.0-98.0); Mean Platelet Volume 9.9 fL (7.4-10.4); Platelet Count 207 10x3/uL (130-400); RBC Distribution Width 14.1 % (11.5-14.5); Red Blood Cell (RBC) Count 3.08 mill/uL (4.20-5.40); White Blood Cell (WBC) Count 7.9 10x3/uL (4.8-10.8)
[2023-07-18 04:41] LABS: Anion Gap 15 mmol/L (10-20); BUN (Urea Nitrogen) 18 mg/dL (9.8-20.1); Calc. Creatinine Clearance 12 mL/min (70-130); Calcium 8.9 mg/dL (7.8-10.44); Carbon Dioxide 27 mmol/L (23-31); Cardiac Risk 4.1 (Less than 4.5); Chloride 99 mmol/L (98-107); Cholesterol 120 mg/dl (< 200 Desired); Estimated GFR 9; Glucose 173 mg/dL (83-110); HDL Cholesterol 29 mg/dL (>60 Neg Risk); LDL Cholesterol, Calculated 51 mg/dL; Potassium 3.8 mmol/L (3.5-5.1); Sodium 137 mmol/L (136-145); Triglycerides 199 mg/dL (Less than 150)
[2023-07-18] MEDS ORDERED: Levothyroxine Sodium 100 MCG TAB PO SCH (06:00)
[2023-07-18] MEDS: Aspirin 81 mg Enteric Coated Tablet PO SCH (08:58)
[2023-07-18] MEDS: NIFEdipine XL 60 MG TAB PO SCH (08:58)
[2023-07-18] MEDS: Furosemide 20 MG TAB PO SCH (08:59)
[2023-07-18] MEDS: Apixaban 2.5 MG TAB PO SCH (08:59)
[2023-07-18] MEDS: hydrALAZINE 25 MG TAB PO SCH ×2 (08:59→13:19)
[2023-07-18] MEDS: Calcium Acetate 667 MG CAP PO SCH ×2 (08:59→13:19)
[2023-07-18] MEDS ORDERED: Insulin NPH Human Isophane 100 UNITS/ML (10 ML VIAL) SC SCH (09:00)
[2023-07-18] MEDS ORDERED: Sertraline 100 MG TAB PO SCH (09:00)
[2023-07-18] MEDS ORDERED: Ezetimibe 10 MG TAB PO SCH (09:00)
[2023-07-18] MEDS ORDERED: Gabapentin 300 MG CAP PO SCH (09:00)
[2023-07-18] MEDS ORDERED: Loperamide HCl 2 MG CAP PO PRN (10:00)
[2023-07-18 11:45] VITALS: TEMP 97.8
[2023-07-18] MEDS: HumaLOG 300 UNITS/3 ML VIAL SC PRN (13:20)
[2023-07-18 17:41] VITALS: BP 134/72
[2023-07-20] MEDS ORDERED: Epoetin (ESRD) 10,000 UNITS/ML VIAL IVP SCH (09:00)
== END 2023-07-18 16:30 | disposition home or self-care (01) ==
LOC: 2NO 20:12
PROVIDERS: ADMIT Internal Medicine; ATTEND Internal Medicine
DX: N18.6 End stage renal disease (principal); I12.0 Hypertensive chronic kidney disease with stage 5 chronic kidney disease or end stage renal disease; I13.2 Hypertensive heart and chronic kidney disease with heart failure and with stage 5 chronic kidney disease, or end stage renal disease; E11.22 Type 2 diabetes mellitus with diabetic chronic kidney disease; I50.9 Heart failure, unspecified; D63.1 Anemia in chronic kidney disease; E78.5 Hyperlipidemia, unspecified; R60.0 Localized edema; E03.9 Hypothyroidism, unspecified; I48.91 Unspecified atrial fibrillation; J96.11 Chronic respiratory failure with hypoxia; E11.69 Type 2 diabetes mellitus with other specified complication; E66.9 Obesity, unspecified; R29.90 Unspecified symptoms and signs involving the nervous system; G45.9 Transient cerebral ischemic attack, unspecified; I65.22 Occlusion and stenosis of left carotid artery; Z99.2 Dependence on renal dialysis; Z90.710 Acquired absence of both cervix and uterus; Z79.890 Hormone replacement therapy; Z88.1 Allergy status to other antibiotic agents; Z79.4 Long term (current) use of insulin; Z79.899 Other long term (current) drug therapy; Z79.82 Long term (current) use of aspirin; Z68.28 Body mass index [BMI] 28.0-28.9, adult
CPT/HCPCS: 70551; 80048 ×2; 80061; 82962 ×3; 85025 ×2; 93306; 97116; 97535; J1815; 36415; 36416; 90935; G0257; J1644

== ENCOUNTER 2023-08-11 18:45 | Inpatient (IN) | payer MEDICARE ==
[2023-08-12 00:32] VITALS: BMI 28.6
[2023-08-12] MEDS ORDERED: Acetaminophen 650 MG Suppository PR PRN ×2 (02:18→10:44)
[2023-08-12] MEDS ORDERED: Ondansetron ODT 4 MG TAB PO PRN (02:18)
[2023-08-12] MEDS ORDERED: Acetaminophen 325 MG TAB PO PRN ×2 (02:18→10:44)
[2023-08-12] MEDS ORDERED: Ondansetron PF 4 MG/2 ML Vial IVP PRN (02:18)
[2023-08-12 05:08] LABS: #Eosinphils 0.3 thou/uL (0.0-0.7); #Monocytes 0.7 thou/uL (0.11-0.59); #Neutrophils 5.1 thou/uL (1.40-6.50); %Basophils 0.4 % (0.0-1.0); %Eosinophils 3.4 % (0.0-10.0); %Lymphocytes 24.2 % (21.0-51.0); %Monocytes 9.1 % (0.0-10.0); %Neutrophils 62.7 % (42.0-75.0); Hematocrit 25.6 % (36.0-47.0); Hemoglobin 8.1 g/dL (12.0-16.0); Mean Corpuscular HGB CONC 31.6 g/dL (32.0-36.0); Mean Corpuscular Hemoglobin 32.8 pg (27.0-31.0); Mean Corpuscular Volume 103.6 fl (78.0-98.0); Mean Platelet Volume 10.7 fL (7.4-10.4); Platelet Count 178 10x3/uL (130-400); RBC Distribution Width 14.4 % (11.5-14.5); Red Blood Cell (RBC) Count 2.47 mill/uL (4.20-5.40); White Blood Cell (WBC) Count 8.1 10x3/uL (4.8-10.8)
[2023-08-12 05:34] LABS: Anion Gap 14 mmol/L (10-20); BUN (Urea Nitrogen) 35 mg/dL (9.8-20.1); Calc. Creatinine Clearance 9 mL/min (70-130); Calcium 9.4 mg/dL (7.8-10.44); Carbon Dioxide 30 mmol/L (23-31); Chloride 97 mmol/L (98-107); Estimated GFR 7; Glucose 113 mg/dL (83-110); Potassium 3.6 mmol/L (3.5-5.1); Sodium 137 mmol/L (136-145)
[2023-08-12] MEDS ORDERED: Glucagon 1 MG/ML KIT IM PRN (06:23)
[2023-08-12] MEDS ORDERED: Dextrose 5% in Water 1,000 ML IV PRN (06:23)
[2023-08-12] MEDS ORDERED: HumaLOG 300 UNITS/3 ML VIAL SC PRN (06:23)
[2023-08-12] MEDS ORDERED: Dextrose 50% Abboject 50 ML SYRINGE SLOW IVP PRN (06:23)
[2023-08-12 09:11] LABS: HBSAB Concentration Less than 8.00 mIU/mL; HBSAg Index 0.26 S/CO (0-0.99); Hep B Core Total Ab Non-Reactive (NonReactive); Hep B Core Total Index 0.12 S/CO (0-0.79); Hep B Surf AB Non-Reactive (NonReactive); Hep B Surf Ag Non-Reactive S/CO (NonReactive); Hep C IgG Ab Non-Reactive S/CO (NonReactive); Hep C Index 0.05 S/CO (0-0.79)
[2023-08-12] MEDS ORDERED: Heparin 10,000 UNITS/ 10 ML VIAL ONE (09:54)
[2023-08-12] MEDS ORDERED: Calcium Carbonate 500 MG ChewTAB PO PRN (10:39)
[2023-08-12] MEDS ORDERED: Ipratropium/Albuterol 3 ML NEB NEB PRN (11:39)
[2023-08-12] MEDS ORDERED: Calcium Acetate 667 MG CAP PO SCH (12:00)
[2023-08-12 12:34] LABS: Hemoglobin A1c 5.4 % (4.0-6.0)
[2023-08-12] MEDS ORDERED: Non-Formulary Item 1 EACH (Hydralazine Hcl [Hydralazine Hcl] 50 MG Tablet) PO SCH (15:00)
[2023-08-12] MEDS: Calcium Acetate 667 MG CAP PO SCH (20:34)
[2023-08-12] MEDS: Furosemide 20 MG TAB PO SCH (20:36)
[2023-08-12] MEDS: Atorvastatin Calcium 40 MG TAB PO SCH (20:36)
[2023-08-12] MEDS ORDERED: Insulin NPH Human Isophane 100 UNITS/ML (10 ML VIAL) SC SCH (21:00)
[2023-08-13] MEDS ORDERED: Metoprolol Tartrate 5 MG/5 ML VIAL IVP SCH ×2 (01:15→01:45)
[2023-08-13] MEDS ORDERED: dilTIAZem 25 MG/5 ML VIAL SLOW IVP SCH (02:15)
[2023-08-13] MEDS: Levothyroxine Sodium 125 MCG TAB PO SCH (04:12)
[2023-08-13 05:08] LABS: #Eosinphils 0.3 thou/uL (0.0-0.7); #Monocytes 0.6 thou/uL (0.11-0.59); #Neutrophils 5.9 thou/uL (1.40-6.50); %Basophils 0.4 % (0.0-1.0); %Eosinophils 3.5 % (0.0-10.0); %Monocytes 7.8 % (0.0-10.0); %Neutrophils 72.1 % (42.0-75.0); Hematocrit 29.7 % (36.0-47.0); Hemoglobin 9.8 g/dL (12.0-16.0); Mean Corpuscular Hemoglobin 32.8 pg (27.0-31.0); Mean Corpuscular Volume 99.3 fl (78.0-98.0); Mean Platelet Volume 10.2 fL (7.4-10.4); Platelet Count 201 10x3/uL (130-400); RBC Distribution Width 13.9 % (11.5-14.5); Red Blood Cell (RBC) Count 2.99 mill/uL (4.20-5.40); White Blood Cell (WBC) Count 8.2 10x3/uL (4.8-10.8)
[2023-08-13 05:41] LABS: Phosphorus 2.2 mg/dL (2.3-4.7)
[2023-08-13 06:13] LABS: ALT (SGPT) Less than 7 U/L (8-55); AST (SGOT) 19 U/L (5-34); Albumin 3.4 g/dL (3.4-4.8); Alkaline Phosphatase 62 U/L (40-110); Anion Gap 15 mmol/L (10-20); BUN (Urea Nitrogen) 15 mg/dL (9.8-20.1); Bilirubin, Total 0.5 mg/dL (0.2-1.2); Calc. Creatinine Clearance 15 mL/min (70-130); Calcium 8.9 mg/dL (7.8-10.44); Carbon Dioxide 26 mmol/L (23-31); Chloride 98 mmol/L (98-107); Estimated GFR 12; Globulin 2.7 g/dL (2.4-3.5); Glucose 123 mg/dL (83-110); Potassium 3.5 mmol/L (3.5-5.1); Protein, Total 6.1 g/dL (5.8-8.1); Sodium 135 mmol/L (136-145)
[2023-08-13] MEDS: Loratadine 10 MG TAB PO SCH (08:34)
[2023-08-13] MEDS: Calcium Acetate 667 MG CAP PO SCH ×3 (08:35→16:15)
[2023-08-13] MEDS: Ezetimibe 10 MG TAB PO SCH (08:35)
[2023-08-13] MEDS: Gabapentin 300 MG CAP PO SCH (08:35)
[2023-08-13] MEDS: Sertraline 100 MG TAB PO SCH (08:35)
[2023-08-13] MEDS: Furosemide 20 MG TAB PO SCH ×2 (08:35→21:10)
[2023-08-13] MEDS ORDERED: Apixaban 2.5 MG TAB PO SCH (09:00)
[2023-08-13] MEDS ORDERED: Non-Formulary Item 1 EACH (Atorvastatin Calcium [Atorvastatin Calcium] 80 MG Tablet) PO SCH (09:00)
[2023-08-13] MEDS ORDERED: Levothyroxine Sodium 100 MCG TAB PO SCH (09:00)
[2023-08-13] MEDS ORDERED: Non-Formulary Item 1 EACH (Cetirizine Hcl [Zyrtec] 10 MG Capsule) PO SCH (09:00)
[2023-08-13] MEDS ORDERED: hydrALAZINE 25 MG TAB PO SCH ×2 (10:34→10:45)
[2023-08-13] MEDS ORDERED: NIFEdipine XL 60 MG ER.TAB PO SCH ×3 (10:34→21:00)
[2023-08-13] MEDS: hydrALAZINE 25 MG TAB PO SCH ×2 (16:14→21:09)
[2023-08-13] MEDS: Apixaban 2.5 MG TAB PO SCH (21:09)
[2023-08-13] MEDS: Atorvastatin Calcium 40 MG TAB PO SCH (21:09)
[2023-08-13] MEDS: NIFEdipine XL 60 MG ER.TAB PO SCH (21:09)
[2023-08-14 05:41] LABS: #Eosinphils 0.2 thou/uL (0.0-0.7); #Monocytes 0.9 thou/uL (0.11-0.59); #Neutrophils 6.6 thou/uL (1.40-6.50); %Basophils 0.3 % (0.0-1.0); %Eosinophils 1.9 % (0.0-10.0); %Lymphocytes 19.2 % (21.0-51.0); %Neutrophils 69.3 % (42.0-75.0); Hematocrit 26.5 % (36.0-47.0); Hemoglobin 8.7 g/dL (12.0-16.0); Mean Corpuscular HGB CONC 32.8 g/dL (32.0-36.0); Mean Corpuscular Hemoglobin 32.6 pg (27.0-31.0); Mean Corpuscular Volume 99.3 fl (78.0-98.0); Mean Platelet Volume 10.7 fL (7.4-10.4); Platelet Count 196 10x3/uL (130-400); Red Blood Cell (RBC) Count 2.67 mill/uL (4.20-5.40); White Blood Cell (WBC) Count 9.5 10x3/uL (4.8-10.8)
[2023-08-14] MEDS: Levothyroxine Sodium 125 MCG TAB PO SCH (06:10)
[2023-08-14 06:11] LABS: Phosphorus 2.5 mg/dL (2.3-4.7)
[2023-08-14 06:15] LABS: ALT (SGPT) 9 U/L (8-55); AST (SGOT) 21 U/L (5-34); Albumin 3.5 g/dL (3.4-4.8); Alkaline Phosphatase 56 U/L (40-110); Anion Gap 16 mmol/L (10-20); BUN (Urea Nitrogen) 31 mg/dL (9.8-20.1); Bilirubin, Total 0.4 mg/dL (0.2-1.2); Calc. Creatinine Clearance 9 mL/min (70-130); Calcium 9.8 mg/dL (7.8-10.44); Carbon Dioxide 27 mmol/L (23-31); Chloride 95 mmol/L (98-107); Estimated GFR 7; Globulin 2.6 g/dL (2.4-3.5); Glucose 136 mg/dL (83-110); Protein, Total 6.1 g/dL (5.8-8.1); Sodium 134 mmol/L (136-145)
[2023-08-14] MEDS ORDERED: dilTIAZem 25 MG/5 ML VIAL SLOW IVP SCH (08:30)
[2023-08-14] MEDS ORDERED: Heparin 10,000 UNITS/ 10 ML VIAL ONE (08:43)
[2023-08-14] MEDS ORDERED: EPOETIN ALFA-EPBX (ESRD) 10,000 UNITS/ML VIAL IVP SCH (09:00)
[2023-08-14] MEDS: Sertraline 100 MG TAB PO SCH (12:03)
[2023-08-14] MEDS: Ezetimibe 10 MG TAB PO SCH (12:03)
[2023-08-14] MEDS: Furosemide 20 MG TAB PO SCH ×2 (12:03→20:39)
[2023-08-14] MEDS: hydrALAZINE 25 MG TAB PO SCH ×4 (12:03→23:22)
[2023-08-14] MEDS: Calcium Acetate 667 MG CAP PO SCH ×3 (12:03→18:04)
[2023-08-14] MEDS: Gabapentin 300 MG CAP PO SCH (12:04)
[2023-08-14] MEDS: NIFEdipine XL 60 MG ER.TAB PO SCH ×2 (12:04→20:39)
[2023-08-14] MEDS: Apixaban 2.5 MG TAB PO SCH ×2 (12:04→20:40)
[2023-08-14] MEDS: Loratadine 10 MG TAB PO SCH (12:04)
[2023-08-14] MEDS: Polyethylene Glycol 3350 17 GM Packet PO SCH (12:05)
[2023-08-14] MEDS: Epoetin (ESRD) 10,000 UNITS/ML VIAL IVP SCH (13:54)
[2023-08-14] MEDS: HumaLOG 300 UNITS/3 ML VIAL SC PRN (18:05)
[2023-08-14] MEDS: Atorvastatin Calcium 40 MG TAB PO SCH (20:40)
[2023-08-15] MEDS: Levothyroxine Sodium 125 MCG TAB PO SCH (05:54)
[2023-08-15 06:33] LABS: #Eosinphils 0.3 thou/uL (0.0-0.7); #Monocytes 0.9 thou/uL (0.11-0.59); #Neutrophils 4.7 thou/uL (1.40-6.50); %Basophils 0.5 % (0.0-1.0); %Eosinophils 3.5 % (0.0-10.0); %Lymphocytes 26.7 % (21.0-51.0); %Monocytes 10.9 % (0.0-10.0); %Neutrophils 58.3 % (42.0-75.0); Hematocrit 29.3 % (36.0-47.0); Hemoglobin 9.7 g/dL (12.0-16.0); Mean Corpuscular HGB CONC 33.1 g/dL (32.0-36.0); Mean Corpuscular Hemoglobin 33.2 pg (27.0-31.0); Mean Corpuscular Volume 100.3 fl (78.0-98.0); Mean Platelet Volume 10.4 fL (7.4-10.4); Platelet Count 178 10x3/uL (130-400); Red Blood Cell (RBC) Count 2.92 mill/uL (4.20-5.40); White Blood Cell (WBC) Count 8.1 10x3/uL (4.8-10.8)
[2023-08-15 07:01] LABS: ALT (SGPT) 7 U/L (8-55); AST (SGOT) 16 U/L (5-34); Albumin 3.4 g/dL (3.4-4.8); Alkaline Phosphatase 57 U/L (40-110); Anion Gap 12 mmol/L (10-20); BUN (Urea Nitrogen) 18 mg/dL (9.8-20.1); Bilirubin, Total 0.4 mg/dL (0.2-1.2); Calc. Creatinine Clearance 11 mL/min (70-130); Calcium 9.7 mg/dL (7.8-10.44); Carbon Dioxide 29 mmol/L (23-31); Chloride 98 mmol/L (98-107); Estimated GFR 9; Globulin 2.5 g/dL (2.4-3.5); Glucose 138 mg/dL (83-110); Phosphorus 2.2 mg/dL (2.3-4.7); Potassium 4.1 mmol/L (3.5-5.1); Protein, Total 5.9 g/dL (5.8-8.1); Sodium 135 mmol/L (136-145)
[2023-08-15] MEDS ORDERED: PHOS-NAK 1 PKT PACK PO SCH (08:00)
[2023-08-15] MEDS: Calcium Acetate 667 MG CAP PO SCH ×3 (08:21→17:29)
[2023-08-15] MEDS: NIFEdipine XL 60 MG ER.TAB PO SCH ×2 (08:23→20:55)
[2023-08-15] MEDS: Apixaban 2.5 MG TAB PO SCH ×2 (08:23→20:56)
[2023-08-15] MEDS: hydrALAZINE 25 MG TAB PO SCH ×3 (08:23→20:56)
[2023-08-15] MEDS: Sertraline 100 MG TAB PO SCH (08:23)
[2023-08-15] MEDS: Ezetimibe 10 MG TAB PO SCH (08:24)
[2023-08-15] MEDS: Gabapentin 300 MG CAP PO SCH (08:24)
[2023-08-15] MEDS: Loratadine 10 MG TAB PO SCH (08:24)
[2023-08-15] MEDS: Furosemide 20 MG TAB PO SCH ×2 (08:25→20:56)
[2023-08-15] MEDS: Polyethylene Glycol 3350 17 GM Packet PO SCH (08:41)
[2023-08-15] MEDS: HumaLOG 300 UNITS/3 ML VIAL SC PRN (13:54)
[2023-08-15] MEDS: Atorvastatin Calcium 40 MG TAB PO SCH (20:56)
[2023-08-16] MEDS: Levothyroxine Sodium 125 MCG TAB PO SCH (04:53)
[2023-08-16 05:18] LABS: #Eosinphils 0.5 thou/uL (0.0-0.7); #Monocytes 0.7 thou/uL (0.11-0.59); #Neutrophils 8.8 thou/uL (1.40-6.50); %Basophils 0.3 % (0.0-1.0); %Eosinophils 4.5 % (0.0-10.0); %Lymphocytes 15.9 % (21.0-51.0); %Monocytes 5.7 % (0.0-10.0); %Neutrophils 73.1 % (42.0-75.0); Hematocrit 32.9 % (36.0-47.0); Hemoglobin 10.9 g/dL (12.0-16.0); Mean Corpuscular HGB CONC 33.1 g/dL (32.0-36.0); Mean Corpuscular Hemoglobin 32.8 pg (27.0-31.0); Mean Corpuscular Volume 99.1 fl (78.0-98.0); Mean Platelet Volume 10.5 fL (7.4-10.4); Platelet Count 204 10x3/uL (130-400); Red Blood Cell (RBC) Count 3.32 mill/uL (4.20-5.40)
[2023-08-16 05:54] LABS: ALT (SGPT) 9 U/L (8-55); AST (SGOT) 16 U/L (5-34); Albumin 3.7 g/dL (3.4-4.8); Alkaline Phosphatase 65 U/L (40-110); Anion Gap 16 mmol/L (10-20); BUN (Urea Nitrogen) 31 mg/dL (9.8-20.1); Bilirubin, Total 0.5 mg/dL (0.2-1.2); Calc. Creatinine Clearance 7 mL/min (70-130); Calcium 11.4 mg/dL (7.8-10.44); Carbon Dioxide 28 mmol/L (23-31); Chloride 96 mmol/L (98-107); Estimated GFR 6; Globulin 2.8 g/dL (2.4-3.5); Glucose 159 mg/dL (83-110); Magnesium 2.3 mg/dL (1.6-2.6); Phosphorus 2.8 mg/dL (2.3-4.7); Potassium 4.4 mmol/L (3.5-5.1); Protein, Total 6.5 g/dL (5.8-8.1); Sodium 136 mmol/L (136-145)
[2023-08-16] MEDS: Ezetimibe 10 MG TAB PO SCH (10:14)
[2023-08-16] MEDS: Apixaban 2.5 MG TAB PO SCH ×2 (10:14→20:47)
[2023-08-16] MEDS: Furosemide 20 MG TAB PO SCH ×2 (10:14→20:47)
[2023-08-16] MEDS: Sertraline 100 MG TAB PO SCH (10:14)
[2023-08-16] MEDS: Calcium Acetate 667 MG CAP PO SCH ×3 (10:14→19:10)
[2023-08-16] MEDS: Gabapentin 300 MG CAP PO SCH (10:15)
[2023-08-16] MEDS: Loratadine 10 MG TAB PO SCH (10:15)
[2023-08-16] MEDS: NIFEdipine XL 60 MG ER.TAB PO SCH ×2 (10:15→20:47)
[2023-08-16] MEDS: Polyethylene Glycol 3350 17 GM Packet PO SCH (10:15)
[2023-08-16] MEDS: hydrALAZINE 25 MG TAB PO SCH ×4 (12:42→20:47)
[2023-08-16] MEDS: HumaLOG 300 UNITS/3 ML VIAL SC PRN (18:12)
[2023-08-16] MEDS: Atorvastatin Calcium 40 MG TAB PO SCH (20:47)
[2023-08-17] MEDS: Levothyroxine Sodium 125 MCG TAB PO SCH (05:03)
[2023-08-17 05:35] LABS: #Eosinphils 0.4 thou/uL (0.0-0.7); #Monocytes 0.8 thou/uL (0.11-0.59); #Neutrophils 8.4 thou/uL (1.40-6.50); %Basophils 0.2 % (0.0-1.0); %Eosinophils 3.3 % (0.0-10.0); %Lymphocytes 12.1 % (21.0-51.0); %Monocytes 7.4 % (0.0-10.0); %Neutrophils 76.7 % (42.0-75.0); Hematocrit 28.7 % (36.0-47.0); Hemoglobin 9.5 g/dL (12.0-16.0); Mean Corpuscular HGB CONC 33.1 g/dL (32.0-36.0); Mean Corpuscular Hemoglobin 33.3 pg (27.0-31.0); Mean Corpuscular Volume 100.7 fl (78.0-98.0); Mean Platelet Volume 10.2 fL (7.4-10.4); Platelet Count 171 10x3/uL (130-400); RBC Distribution Width 13.8 % (11.5-14.5); Red Blood Cell (RBC) Count 2.85 mill/uL (4.20-5.40)
[2023-08-17 06:01] LABS: ALT (SGPT) 8 U/L (8-55); AST (SGOT) 12 U/L (5-34); Albumin 3.2 g/dL (3.4-4.8); Alkaline Phosphatase 60 U/L (40-110); Anion Gap 15 mmol/L (10-20); BUN (Urea Nitrogen) 46 mg/dL (9.8-20.1); Bilirubin, Total 0.5 mg/dL (0.2-1.2); Calc. Creatinine Clearance 6 mL/min (70-130); Calcium 10.7 mg/dL (7.8-10.44); Carbon Dioxide 28 mmol/L (23-31); Chloride 96 mmol/L (98-107); Estimated GFR 4; Globulin 2.5 g/dL (2.4-3.5); Glucose 156 mg/dL (83-110); Magnesium 2.2 mg/dL (1.6-2.6); Potassium 4.7 mmol/L (3.5-5.1); Protein, Total 5.7 g/dL (5.8-8.1); Sodium 134 mmol/L (136-145)
[2023-08-17 06:09] LABS: Phosphorus 3.1 mg/dL (2.3-4.7)
[2023-08-17] MEDS ORDERED: Heparin 10,000 UNITS/ 10 ML VIAL ONE (08:43)
[2023-08-17] MEDS: Apixaban 2.5 MG TAB PO SCH ×2 (12:42→20:37)
[2023-08-17] MEDS: Calcium Acetate 667 MG CAP PO SCH ×3 (12:42→18:25)
[2023-08-17] MEDS: Furosemide 20 MG TAB PO SCH ×2 (12:42→20:37)
[2023-08-17] MEDS: NIFEdipine XL 60 MG ER.TAB PO SCH ×2 (12:43→20:38)
[2023-08-17] MEDS: hydrALAZINE 25 MG TAB PO SCH ×4 (12:43→20:38)
[2023-08-17] MEDS: Epoetin (ESRD) 10,000 UNITS/ML VIAL IVP SCH (13:40)
[2023-08-17] MEDS: Ezetimibe 10 MG TAB PO SCH (13:40)
[2023-08-17] MEDS: Loratadine 10 MG TAB PO SCH (13:41)
[2023-08-17] MEDS: Sertraline 100 MG TAB PO SCH (13:41)
[2023-08-17] MEDS: Gabapentin 300 MG CAP PO SCH (13:41)
[2023-08-17] MEDS: Polyethylene Glycol 3350 17 GM Packet PO SCH (13:43)
[2023-08-17] MEDS: Atorvastatin Calcium 40 MG TAB PO SCH (20:37)
[2023-08-18 05:28] LABS: #Eosinphils 0.2 thou/uL (0.0-0.7); #Monocytes 0.7 thou/uL (0.11-0.59); #Neutrophils 4.6 thou/uL (1.40-6.50); %Basophils 0.3 % (0.0-1.0); %Eosinophils 3.5 % (0.0-10.0); %Lymphocytes 15.9 % (21.0-51.0); %Monocytes 10.9 % (0.0-10.0); %Neutrophils 69.1 % (42.0-75.0); Hematocrit 29.3 % (36.0-47.0); Hemoglobin 9.4 g/dL (12.0-16.0); Mean Corpuscular HGB CONC 32.1 g/dL (32.0-36.0); Mean Corpuscular Volume 102.8 fl (78.0-98.0); Mean Platelet Volume 10.2 fL (7.4-10.4); Platelet Count 185 10x3/uL (130-400); Red Blood Cell (RBC) Count 2.85 mill/uL (4.20-5.40); White Blood Cell (WBC) Count 6.6 10x3/uL (4.8-10.8)
[2023-08-18 05:53] LABS: Phosphorus 2.2 mg/dL (2.3-4.7)
[2023-08-18 06:00] LABS: ALT (SGPT) Less than 7 U/L (8-55); AST (SGOT) 12 U/L (5-34); Albumin 3.1 g/dL (3.4-4.8); Alkaline Phosphatase 68 U/L (40-110); Anion Gap 13 mmol/L (10-20); BUN (Urea Nitrogen) 21 mg/dL (9.8-20.1); Bilirubin, Total 0.3 mg/dL (0.2-1.2); Calc. Creatinine Clearance 9 mL/min (70-130); Calcium 9.2 mg/dL (7.8-10.44); Carbon Dioxide 23 mmol/L (23-31); Chloride 101 mmol/L (98-107); Estimated GFR 8; Globulin 2.5 g/dL (2.4-3.5); Glucose 161 mg/dL (83-110); Potassium 3.9 mmol/L (3.5-5.1); Protein, Total 5.6 g/dL (5.8-8.1); Sodium 133 mmol/L (136-145)
[2023-08-18] MEDS: Levothyroxine Sodium 125 MCG TAB PO SCH (06:09)
[2023-08-18] MEDS: Apixaban 2.5 MG TAB PO SCH (09:06)
[2023-08-18] MEDS: Gabapentin 300 MG CAP PO SCH (09:07)
[2023-08-18] MEDS: Ezetimibe 10 MG TAB PO SCH (09:07)
[2023-08-18] MEDS: Furosemide 20 MG TAB PO SCH (09:07)
[2023-08-18] MEDS: Loratadine 10 MG TAB PO SCH (09:08)
[2023-08-18] MEDS: Sertraline 100 MG TAB PO SCH (09:08)
[2023-08-18] MEDS: hydrALAZINE 25 MG TAB PO SCH (09:08)
[2023-08-18] MEDS: Polyethylene Glycol 3350 17 GM Packet PO SCH (09:08)
[2023-08-18] MEDS: NIFEdipine XL 60 MG ER.TAB PO SCH (09:08)
[2023-08-18 10:56] VITALS: BP 153/67; TEMP 97.6
== END 2023-08-18 14:15 | DRG 291 ==
LOC: 2SW 08-12 00:04 → INTOOBSV 08-12 00:04 → OBSVTOIN 08-13 10:31
PROVIDERS: ADMIT Internal Medicine; ATTEND Family Medicine
PROC: 5A1D70Z Performance of Urinary Filtration, Intermittent, Less than 6 Hours Per Day (ICD-10-PCS; principal; 2023-08-17)
DX: I13.2 Hypertensive heart and chronic kidney disease with heart failure and with stage 5 chronic kidney disease, or end stage renal disease (principal); I50.33 Acute on chronic diastolic (congestive) heart failure; N18.6 End stage renal disease; J96.01 Acute respiratory failure with hypoxia; J44.9 Chronic obstructive pulmonary disease, unspecified; E03.9 Hypothyroidism, unspecified; K21.9 Gastro-esophageal reflux disease without esophagitis; E11.22 Type 2 diabetes mellitus with diabetic chronic kidney disease; I48.91 Unspecified atrial fibrillation; G47.33 Obstructive sleep apnea (adult) (pediatric); E78.5 Hyperlipidemia, unspecified; Z66 Do not resuscitate; D63.1 Anemia in chronic kidney disease; D72.829 Elevated white blood cell count, unspecified; Z88.1 Allergy status to other antibiotic agents; Z79.01 Long term (current) use of anticoagulants; Z79.899 Other long term (current) drug therapy; Z79.4 Long term (current) use of insulin; Z98.890 Other specified postprocedural states; Z90.710 Acquired absence of both cervix and uterus; Z87.891 Personal history of nicotine dependence; Z99.2 Dependence on renal dialysis
CPT/HCPCS: 36415; 36416; 71045; 71046; 80048; 80053; 83036; 83735; 84100; 84145; 85025; 86704; 90935; 93005; 93010; 96374; 96375; 96376; G0257; G0378; J1644; J1815; J2405; Q0162; Q4081